=== PATIENT | male | born 1950 | race Caucasian/White ===

== ENCOUNTER → 2019-02-09 | Outpatient (CLI) | payer MEDICARE, BC, SELFPAY ==
--- NOTE | 2019-02-09 10:45 | MRI_ITS ---
STUDY: MRI LUMBAR SPINE WITHOUT CONTRAST REASON FOR EXAM: Male, 68 years old. Spinal stenosis, bilateral leg pain TECHNIQUE: Standardized fat and water weighted pulse sequences were obtained in the sagittal and axial planes. COMPARISON: None FINDINGS: T12-L1: Schmorl's nodes. Normal disc height, hydration and morphology. Normal bilateral facet joints. Normal central canal and bilateral lateral recesses. Normal bilateral intervertebral neural foramina. Normal lumbar lordosis. There is no substantial scoliosis. Normal conus medullaris that terminates at the T11-12 level. L1-2: Schmorl's nodes. Normal disc height, hydration and morphology. Normal bilateral facet joints. Normal central canal and bilateral lateral recesses. Normal bilateral intervertebral neural foramina. L2-3: Normal endplates. Normal disc height, hydration and morphology. Normal bilateral facet joints. Normal central canal and bilateral lateral recesses. Normal bilateral intervertebral neural foramina. L3-4: Normal endplates. There is mild annular disc bulge and disc desiccation. Mild bilateral facet arthrosis and ligamentum flavum hypertrophy.. Normal central canal and bilateral lateral recesses. Mild left foraminal narrowing. L4-5: Normal endplates. Moderate intervertebral disc space narrowing and moderate annular disc bulge. There is marked ligamentum flavum hypertrophy and moderate to marked bilateral facet arthrosis. Moderate to marked central canal narrowing and moderate bilateral foraminal narrowing. L5-S1: Normal endplates. Mild annular disc bulge. Mild bilateral facet arthrosis. Normal central canal and bilateral lateral recesses. Mild bilateral foraminal narrowing. Normal visualized sacral ala. Normal visualized paraspinous soft tissue structures. There is a small right renal cyst. MRI/Spine Lumbar (Routine) IMPRESSION: Multilevel degenerative disc disease is most prominent at L4-L5 as described above. Electronically Signed: Azam Messina, at 13:25 EDT Tel , Service support ,
== END | disposition home or self-care (01) ==
LOC: MRI 10:14
PROVIDERS: Family Provider Family Medicine; PCP Family Medicine
DX: M48.061 Spinal stenosis, lumbar region without neurogenic claudication (principal)
CPT/HCPCS: 72148

== ENCOUNTER 2019-05-16 03:36 | Inpatient (IN) | payer MEDICARE, BC, SELFPAY ==
[2015-09-25 12:44] VITALS: BMI 25.1
[2019-05-16] VITALS (43 sets, daily range): BP systolic 61–113; BP diastolic 34–70; PULSE 86–118; RESP 14–25; TEMP 36.4–38.8; O2SAT 89–99; BMI 25.7; BMI 25.9
--- NOTE | 2019-05-16 03:40 | EKG12_ITS ---
Test Reason : SOB Blood Pressure : / mmHG Vent. Rate : 095 BPM Atrial Rate : 095 BPM P-R Int : 160 ms QRS Dur : 094 ms QT Int : 366 ms P-R-T Axes : 050 047 048 degrees QTc Int : 459 ms Sinus rhythm with Premature atrial complexes Incomplete right bundle branch block Borderline ECG Confirmed by STEVE TREVINO ([id number]), telegraph editor GURPREET KILGORE ([id number]) on 05/22/2019 8:36:50 AM Referred By: JED Confirmed By:STEVE TREVINO
--- NOTE | 2019-05-16 04:15 | RAD_ITS ---
STUDY: X-RAY CHEST REASON FOR EXAM: Male, 68 years old. C/O UPPER BACK PAIN X 2 DAYS TECHNIQUE: Frontal and lateral views of the chest. COMPARISON: None. FINDINGS: The lungs are clear and expanded. There is no demonstrated pleural abnormality. Normal size heart. Normal mediastinum and pedrito. Normal visualized pulmonary arteries. Normal visualized aortic arch and descending thoracic aorta. There are diffuse degenerative changes of the visualized thoracic spine. There is mild dextro scoliosis of the thoracic spine. There is mild compression fracture of T12. Normal visualized ribs, clavicles, and shoulders. There is no demonstrated abnormality of the visualized soft tissue structures of the upper abdomen. RAD/Chest PA and Lateral IMPRESSION: Degenerative changes, as described above. No demonstrated acute cardiopulmonary process. There is mild compression fracture T12 probably an old fracture. Electronically Signed: Giorgio Ruano, at 4:44 EDT Tel , Service support ,
--- NOTE | 2019-05-16 05:20 | CT_ITS ---
STUDY: CT ABDOMEN AND PELVIS WITH CONTRAST REASON FOR EXAM: Male, 68 years old. BACK PAIN,RECURRENT JAUNDICE,ELEVATED BILLIRUBIN RADIATION DOSAGE (If Supplied By Facility): CTDIvol = ( 17.34 ) mGy, DLP = ( 1164.99 ) mGycm TECHNIQUE: Transaxial images were obtained from the dome of the diaphragm to the symphysis pubis without oral contrast. 100ML IV Isovue 300 was administered. Sagittal and coronal images were reconstructed. Individualized dose optimization techniques were used for this CT. COMPARISON: None. FINDINGS: Ill-defined airspace opacity is seen in the right lung lower lobe suggesting early pneumonia. The visualized portions of the heart are within normal limits. There is a moderate dilatation of the intrahepatic biliary tree. There is marked dilatation of the common bile duct which measures 18 mm. There is a noncalcified stone in the lower part of the common bile duct measures 2 cm. Normal spleen. Normal pancreas. Normal bilateral adrenal glands. Normal right kidney. Normal left kidney. Normal visualized stomach. Normal small intestine. There are multiple colonic diverticula consistent with diverticulosis. The appendix is visualized and appears normal. There is diffuse atherosclerotic calcification of the abdominal aorta, there is aneurysmal dilatation of the infrarenal abdominal aorta measures 3 cm in diameter. Normal inferior vena cava. Normal retroperitoneum. Normal urinary bladder. There is a left-sided inguinal hernia containing adipose tissue. There are diffuse degenerative changes of the visualized lumbar spine. CT/Abdomen/Pelvis WITH Contrast IMPRESSION: There is a moderate dilatation of the intrahepatic biliary tree. There is marked dilatation of the common bile duct which measures 18 mm. There is a noncalcified stone in the lower part of the common bile duct measures 2 cm. There is aneurysmal dilatation of the infrarenal abdominal aorta measures 3 cm in diameter. Ill-defined airspace opacity is seen in the right lung lower lobe suggesting early pneumonia. Electronically Signed: Giorgio Ruano, at 6:02 EDT Tel , Service support ,
[2019-05-16 07:01] LABS: ALB/GLOB Ratio 1.1 RATIO (0.9-2.4); AST(SGOT) 65 U/L (15-37); Alanine Aminotransfer ALT/SGPT 46 U/L (16-61); Alkaline Phosphatase 70 U/L (45-117); Anion Gap 9 (5-15); BUN 30 mg/dL (7-18); BUN/Creat Ratio 20.5 RATIO (10-20); Chloride 107 mmol/L (98-107); Creatinine, Serum 1.46 mg/dL (0.70-1.30); EST Glomerular Filtration Rate 51 mL/min (>60); Est Glom Filt Rate - Afr Amer 62 mL/min (>60); Globulin 3.5 g/dL (2.2-4.2); Glucose 162 mg/dL (74-106); Lipase 70 U/L (73-393); Potassium 4.5 mmol/L (3.5-5.1); Protein, Total 7.5 g/dL (6.4-8.2); Sodium Level 139 mmol/L (136-145)
[2019-05-16 07:03] LABS: Lactic Acid 3.4 mmol/L (0.4-2.0)
[2019-05-16 07:07] LABS: Absolute Lymphocyte Count 0.55 X10^3/uL (0.83-4.51); Absolute Neutrophil Count 11.8 X10^3/uL (2.0-7.7); Basophil# 0.02 X10^3/uL; Basophil% 0.2 % (0-1); Eosinophil# 0.01 X10^3/uL; Eosinophils% 0.1 % (0-5); Hematocrit 30.2 % (40-54); Hemoglobin 10.5 g/dL (13.0-16.5); Lymphocyte # 0.55 X10^3/ul (4.0); Lymphocyte % 4.3 % (19-41); Mean Corp Hgb Conc 34.8 g/dL (32-36); Mean Corpuscular Hgb 30.7 pg (27.0-32.0); Mean Corpuscular Volume 88.3 fL (80-94); Mean Platelet Vol. 10.2 fl (6.2-12.0); Monocyte# 0.36 X10^3/uL; Monocyte% 2.8 % (0-10); NRBC Flagged by Analyzer 0 % (0-5); Neutrophil # 11.79 X10^3/uL (2.7-7.7); Neutrophil % 92.1 % (47-70); POSITIVE DIFFERENTIAL YES; Platelet Count 262 K/mm3 (150-450); RBC Distribution Width CV 19.9 % (11.6-14.6); RBC Distribution Width SD 59.7 fl (35.1-43.9); Red Blood Count 3.42 M/mm3 (4.6-6.2); White Blood Count 12.8 K/mm3 (4.4-11.0)
[2019-05-16 07:09] LABS: Anisocytosis 2+; Differential Comment SCANNED; Differential Indicated SCAN CRITERIA MET; Microcytosis 1+
--- NOTE | 2019-05-16 08:15 | PCM.HP.STD ---
Problem List (1) Obstructive jaundice Status: Acute (2) Cholangitis Status: Acute History of Present Illness Date of Admission: 05/16/19 The patient is a 68 year old M who says that yesterday he began to have shortness of breath and scapula pain on the right side. He has a history of choledocholithiasis and had an ERCP with stone removal in 2015. The patient also began to have fevers and tachycardia in the emergency room after arrival. Past Medical History Past Medical History (Chronic Problems): Chronic Problems HTN (hypertension) (Chronic) GERD (gastroesophageal reflux disease) (Chronic) Allergies venom-honey bee [bee venom (honey bee)] Allergy (Verified 09/19/15 09:45) Anaphylaxis Home Medications: Ambulatory Orders Medication Instructions Recorded Lisinopril [Zestril] 20 mg PO DAILY 09/19/15 Meloxicam [Mobic] 15 mg PO DAILY 09/19/15 Acetaminophen [Tylenol Tablet] 650 mg PO Q6H PRN PRN #0 tablet 09/20/15 Omeprazole [Prilosec] 20 mg PO DAILY #60 capsule 09/20/15 Aspirin/Acetaminophen/Caffeine 1 each PO DAILY 09/25/15 [Excedrin Migraine Caplet] Epi Pen (for allergic rxn) [Epi 0.3 mg IM X1 09/25/15 Pen] Multivitamin [Daily Multiple 1 each PO DAILY 09/25/15 Vitamin] Surgical History: - - ERCP with stone removal in 2016 Psychiatric History: No pertinent psych hx Smoking Status: Former smoker - *Family History Paternal History Items: Heart Disease - Father history of Mi at age 69 Review of Systems Constitutional: Reports: Fever. Denies: Anorexia HEENT: Denies: Difficulty Swallowing Cardiovascular: Denies: Chest Pain Respiratory: Reports: Shortness of Breath. Denies: Cough Gastrointestinal: Reports: Abdominal Pain. Denies: Diarrhea, Dyspepsia, Hematemesis, Hematochezia, Nausea, Vomiting Genitourinary: Denies: Dysuria Musculoskeletal: Denies: Joint Tenderness Skin: Reports: Jaundice Neurological: Denies: Balance problems Psychiatric: Denies: Anxiety, Depression Hematologic/ Lymphatic: Denies: Anemia VTE Information - Inpt Only VTE Present on Admission: No VTE Mechan Device Prophylaxis: SCD's Patient Problems: Active and Suspected Problems Obstructive jaundice (Acute) Cholangitis (Acute) - Physical Exam General: Alert, Oriented x3, Cooperative Neck: No JVD Lungs: Normal air movement Cardiovascular: Tachycardic Abdomen: Soft, Non-Distended, Tender - Some tenderness to deep palpation in the right upper quadrant Extremities: No clubbing Skin: No rashes Musculoskeletal: No Muscle Wasting Neurological: Cranial nerves II-XII grossly intact Psych/Mental Status: Normal Affect Body Mass Index (BMI) 25.1 Laboratory Tests Past 24 Hrs 05/16/19 05/16/19 05/16/19 03:58 03:58 05:58 WBC 12.8 H RBC 3.42 L Hgb 10.5 L Hct 30.2 L MCV 88.3 MCH 30.7 MCHC 34.8 RDW Std Deviation 59.7 H RDW Coeff of Roly 19.9 H Plt Count 262 MPV 10.2 Immature Gran % (Auto) 0.500 Neut % (Auto) 92.1 H Lymph % (Auto) 4.3 L Teller % (Auto) 2.8 Eos % (Auto) 0.1 Baso % (Auto) 0.2 Absolute Neuts (auto) 11.8 H Absolute Lymphs (auto) 0.55 L Nucleated RBC % 0 Differential Comment SCANNED Anisocytosis 2+ Microcytosis 1+ Sodium 139 Potassium 4.5 Chloride 107 Carbon Dioxide 23.0 Anion Gap 9 BUN 30 H Creatinine 1.46 H Est GFR (MDRD) Af Amer 62 Est GFR (MDRD) Non-Af 51 L BUN/Creatinine Ratio 20.5 H Glucose 162 H Lactic Acid 3.4 H Calcium 9.0 Total Bilirubin 14.40 H AST 65 H ALT 46 Alkaline Phosphatase 70 Troponin I < 0.015 Total Protein 7.5 Albumin 4.0 Globulin 3.5 Albumin/Globulin Ratio 1.1 Lipase 70 L Clinical Impression(s) from Imaging Studies Chest X-Ray 05/16/19 04:15 IMPRESSION: Degenerative changes, as described above. No demonstrated acute cardiopulmonary process. There is mild compression fracture T12 probably an old fracture. Electronically Signed: Giorgio Ruano, at 4:44 EDT Tel , Service support , Assessment/Plan All Active Problems Obstructive jaundice (Acute) Cholangitis (Acute) Chest pain (Acute) 68-year-old male with obstructive jaundice. 1. The patient had CT scan which shows a probable common bile duct stone. Patient also has market distention of his gallbladder as well as biliary tree. The patient's bilirubin is elevated. The patient also began to have septic symptoms in the emergency room. His blood pressure has dropped to the mid 90s and he has become tachycardic in the 120s. The patient is also having a fever. The patient is jaundiced with fever and right upper quadrant pain consistent with cholangitis. He has been given Rocephin in the emergency room. He is also be given fluid boluses. 2. I recommend emergent ERCP for decompression of his biliary tree. I discussed ERCP with the patient and his . I discussed the risks including but not limited to bleeding, infection, perforation of the bile duct or bowel, pancreatitis. I also discussed placing a stent for decompression and drainage of the biliary tree due to the cholangitis. I also discussed the risks of anesthesia such as heart attack, stroke, requiring extended intubation in the ICU. I also discussed with the patient is in the early stages of sepsis and this may get worse before it gets better. The patient and his both agree that surgery is appropriate and will be the next option. If I am unable to decompress the biliary tree I will send in for percutaneous cholecystostomy tube later today. I was unable to transfer the patient to any tertiary care centers in the near area due to bed shortages. We do not have interventional radiology to place PTC drain. Wilfrid Cohen MD Pager: [facility] [address] [place] [address], [address] [place] [address] Office:
[2019-05-16] MEDS: Lactated Ringers 1,000 ML 100 ML IV (08:53)
--- NOTE | 2019-05-16 10:00 | CT_ITS ---
PROCEDURE: CT DIRECTED PERCUTANEOUS CHOLECYSTOSTOMY. DATE OF EXAMINATION: May 16, 2019. INDICATION: Male, 68 years old. Elevated bilirubin. Sepsis. PHYSICIAN: Hector Canales M.D. CONSENT: Written informed consent was obtained having explained the risks, benefits and alternatives in detail with the patient who accepted the risks and agreed to proceed. Laboratory review and clinical assessment was performed. CONSCIOUS SEDATION PROTOCOL: The Drugs used were: 2 mg Versed, IV., and 50 mcg Fentanyl, IV. The sedation time was: 19minutes. Conscious sedation was started at 10:26 AM and terminated at 10:45 AM. The conscious sedation protocol was independently monitored. RADIATION DOSAGE (If Supplied By Facility): CTDIvol = ( 21.5 ) mGy, DLP = ( 913.25 ) mGycm TECHNIQUE: CT sections were made through the abdomen and pelvis revealing dilated gallbladder and intrahepatic biliary ductal dilatation. Dilated common bile duct with a stone in its distal portion. The skin surface was prepped and draped in a sterile fashion. Puncture of the gallbladder was performed initially with a 10 Romanian catheter and fluid was aspirated. Drainage catheter was then inserted into the collection and formed into position. Additional fluid was aspirated for a total of approximately 110 cc of dark brown biliary fluid. The catheter was sutured into position to allow for continued drainage. Followup CT sections reveals good position of the catheter. CT/CT Guidance Abscess Drg w/Cath IMPRESSION: 1. CT directed drainage of a distended gallbladder using CT image guidance and image documentation as described. 2. Conscious Sedation protocol utilized with independent monitoring Electronically Signed: Hector Canales, at 12:57 EDT , Service support ,
--- NOTE | 2019-05-16 10:11 | PCM.PN.BLA ---
Progress Note Before ERCP could be performed the patients sepsis worsened. At this point the patient is too ustable for surgery. His BP is 74/54 and tachycardia of 120 despite several boluses. I will order a stat cholecystostomy tube for decompression. I discussed with the patient. This will hopefully decompress the biliary tree and allow for sepsis to resolve. The choledocholithiasis can then be addressed. I will arrange for ICU admission after cholecystostomy tube placement. I discussed with Dr Monge and meropenem will be ordered and repeat coag and lactate was ordered as well. Wilfrid Cohen MD
[2019-05-16 10:16] LABS: Reflex Lactate? Y
[2019-05-16] MEDS: Midazolam 2 MG/2 ML Syringe IV (10:25)
[2019-05-16] MEDS: 0.9% Normal Saline 500 ML IV.SOLN. (10:26)
[2019-05-16] MEDS: fentaNYL 100 MCG/2 ML Ampul 50 MCG IV ×6 (10:26→23:34)
--- NOTE | 2019-05-16 11:21 | NURSING ---
report called to [facility] prior to transport.
[2019-05-16] MEDS: 0.9% Normal Saline 1,000 ML 125 ML IV ×2 (11:25→19:27)
[2019-05-16 11:35] LABS: Absolute Lymphocyte Count 0.51 X10^3/uL (0.83-4.51); Absolute Neutrophil Count 8.9 X10^3/uL (2.0-7.7); Basophil# 0.01 X10^3/uL; Basophil% 0.1 % (0-1); Eosinophil# 0.16 X10^3/uL; Eosinophils% 1.6 % (0-5); Hematocrit 23.9 % (40-54); Hemoglobin 8.2 g/dL (13.0-16.5); Lymphocyte # 0.51 X10^3/ul (4.0); Mean Corp Hgb Conc 34.3 g/dL (32-36); Mean Corpuscular Hgb 30.6 pg (27.0-32.0); Mean Corpuscular Volume 89.2 fL (80-94); Mean Platelet Vol. 10.3 fl (6.2-12.0); Monocyte# 0.55 X10^3/uL; Monocyte% 5.4 % (0-10); NRBC Flagged by Analyzer 0 % (0-5); Neutrophil # 8.92 X10^3/uL (2.7-7.7); Neutrophil % 87.5 % (47-70); POSITIVE DIFFERENTIAL YES; POSITIVE MORPHOLOGY YES; Platelet Count 179 K/mm3 (150-450); RBC Distribution Width CV 19.9 % (11.6-14.6); RBC Distribution Width SD 60.8 fl (35.1-43.9); Red Blood Count 2.68 M/mm3 (4.6-6.2); White Blood Count 10.2 K/mm3 (4.4-11.0)
[2019-05-16] MEDS: Lactated Ringers 1,000 ML 999 ML IV ×2 (11:38→12:53)
[2019-05-16 11:39] LABS: Differential Indicated SCAN CRITERIA MET
[2019-05-16 11:47] LABS: International Normalized Ratio 1.2
[2019-05-16 11:48] LABS: Partial Thromboplast Time 29.2 Seconds (24.1-36.2)
[2019-05-16 11:55] LABS: ALB/GLOB Ratio 1.2 RATIO (0.9-2.4); AST(SGOT) 83 U/L (15-37); Alanine Aminotransfer ALT/SGPT 57 U/L (16-61); Alkaline Phosphatase 61 U/L (45-117); Anion Gap 8 (5-15); BUN 26 mg/dL (7-18); BUN/Creat Ratio 17.3 RATIO (10-20); Calcium,Total 7.9 mg/dL (8.5-10.1); Chloride 113 mmol/L (98-107); EST Glomerular Filtration Rate 50 mL/min (>60); Est Glom Filt Rate - Afr Amer 60 mL/min (>60); Estimated Creatinine Clearance 49.34 ml/min; Globulin 2.6 g/dL (2.2-4.2); Glucose 103 mg/dL (74-106); Protein, Total 5.6 g/dL (6.4-8.2); Sodium Level 143 mmol/L (136-145)
[2019-05-16 12:00] LABS: Lactic Acid 2.6 mmol/L (0.4-2.0)
[2019-05-16] MEDS: 0.9% NaCl Peripheral Flush Adult/Peds IV ×4 (12:08→20:13)
[2019-05-16] MEDS: 0.9% NaCl IVPB Med Flush (250 mL) 15 ML IV (12:18)
[2019-05-16] MEDS: fentaNYL 100 MCG/2 ML Ampul 25 MCG IV (13:30)
--- NOTE | 2019-05-16 13:40 | PCM.CON.CC ---
Problem List (1) Septic shock Status: Acute (2) Obstructive jaundice Status: Acute (3) Cholangitis Status: Acute (4) HTN (hypertension) Status: Chronic Qualifiers: Hypertension type: essential hypertension Qualified Code(s): I10 - Essential (primary) hypertension (5) Chest pain Status: Acute Qualifiers: Chest pain type: unspecified Qualified Code(s): R07.9 - Chest pain, unspecified (6) GERD (gastroesophageal reflux disease) Status: Chronic Qualifiers: Esophagitis presence: esophagitis presence not specified Qualified Code(s): K21.9 - Gastro-esophageal reflux disease without esophagitis Reason for Consult Date of Consultation: 05/16/19 Reason for Consultation: Septic shock History of Present Illness: The patient is a 68 year old M, with past medical history listed below, who presented [facility] on 05/16/2019 secondary to shortness of breath and scapular pain. Patient reported that he was of his usual health until approximately 2 days ago. At that time, patient started to notice a darkening of his urine. Approximately 24 hours prior to admission, patient had reported his stated that he was appearing yellow and had some abdominal pain. Patient did report some nausea and one episode of vomiting on the day of admission. Patient stated this was similar to a previous time where he had a stuck gallbladder stone. ER documentation is not available at this time, but patient reportedly did receive 2 L of IV fluids secondary to some hypotension. Patient was seen by surgery and there was some concern on CT scan of the abdomen for enlarged gallbladder. Patient was arranged for an ERCP, but during evaluation was noted to be hypotensive. Decision was made to transition to a percutaneous Jennifer tube and patient was transferred to the intensive care unit for further evaluation. Since being in the intensive care unit, patient has received an additional 2 L of lactated Ringer's secondary to hypotension. Patient's blood pressures have remained marginal. Patient denies any nausea, but states he had difficulty urinating. Patient reported that he attempted to bear down to urinate and developed excruciating right upper quadrant pain. Patient was treated with fentanyl with some improvement. Patient denies any current chest pain, abdominal pain, lower extremity edema or diaphoresis. Patient states he does not have a thermometer at home to check for fever. Patient has never been in the intensive care unit. Patient does report a 69-wvac-yolu smoking history, but quit 10 years ago. Patient denies any history of liver disease in his family and is not turned yellow previously. Patient denies any history of recurrent pancreatitis. Patient does not report any significant alcohol or drug history. Review of systems otherwise negative x10 systems. Past Medical History Past Medical History (Chronic Problems): Chronic Problems HTN (hypertension) (Chronic) GERD (gastroesophageal reflux disease) (Chronic) Allergies venom-honey bee [bee venom (honey bee)] Allergy (Verified 09/19/15 09:45) Anaphylaxis Home Medications: Ambulatory Orders Medication Instructions Recorded Lisinopril [Zestril] 40 mg PO DAILY 09/19/15 Meloxicam [Mobic] 15 mg PO DAILY 09/19/15 Epi Pen (for allergic rxn) [Epi 0.3 mg IM X1 09/25/15 Pen] Omeprazole [Prilosec] 20 mg PO DAILY 05/16/19 Surgical History: - - ERCP with stone removal in 2016 Psychiatric History: No pertinent psych hx Smoking Status: Former smoker - *Family History Paternal History Items: Heart Disease - Father history of Mi at age 69 Review of Systems Comment: See HPI Patient Problems: Active and Suspected Problems Obstructive jaundice (Acute) Cholangitis (Acute) Septic shock (Acute) Objective: Abdominal CT scan was personally reviewed. This did show an enlarged gallbladder. Chest x-ray was relatively unremarkable. Patient has had over 200 cc removed from his LENI drain since being admitted. Patient does not have any previous pulmonary function test or echocardiogram for review. - Physical Exam General: Alert, Oriented x3, Cooperative, - - Significant jaundice noted. Mild distress secondary to abdominal pain. HEENT: Atraumatic, PERRLA, EOMI, Normocephalic, - - Scleral icterus noted. Oral: Moist Mucosa, No Gingival or Mucosal Lesions/ Ulcerations Neck: Supple, No JVD, No Nodes, Trachea Midline Lungs: No rhonchi, No wheeze, No rales, Diminished Cardiovascular: Regular Rhythm, Normal S1, Normal S2, No murmurs, No rub noted, No Gallop, Tachycardic Abdomen: Soft, Hypoactive Bowel Sounds, Distended - Slightly Extremities: No clubbing, No cyanosis, Edema - Trace Skin: No rashes, No breakdown Musculoskeletal: No Tenderness to Palpation of Joints or Extremities Lymphatic: No Cervical, Supraclavicular, or Inguinal Adenopathy Neurological: Cranial nerves II-XII grossly intact, Neuro grossly intact, Motor Exam 5/5 strength throughout Psych/Mental Status: Alert and oriented to time, place, person, mood and affect Vital Signs Temp Pulse Resp BP Pulse Ox 38.1 C H 111 H 17 95/68 93 05/16/19 12:00 05/16/19 13:00 05/16/19 13:00 05/16/19 13:00 05/16/19 13:00 Oxygen Flow Rate (L/min) [6] 2 Oxygen Flow Rate (L/min) [5] 2 Oxygen Flow Rate (L/min) [4] 2 Oxygen Flow Rate (L/min) [3] 2 Oxygen Flow Rate (L/min) [2] 2 Oxygen Flow Rate (L/min) 2 Oxygen Delivery Method [6] Nasal Cannula Oxygen Delivery Method [5] Nasal Cannula Oxygen Delivery Method [4] Nasal Cannula Oxygen Delivery Method [3] Nasal Cannula Oxygen Delivery Method [2] Nasal Cannula Oxygen Delivery Method [1 ( Room Air Initial Baseline)] Oxygen Delivery Method Room Air Weight: 81.8 kg Body Mass Index (BMI) 25.9 Intake and Output for Last 24 Hours 05/14/19 05/15/19 05/16/19 23:59 23:59 23:59 Intake Total 1578.17 / 1578.17 Output Total 180 / 180 Balance 1398.17 / 1398.17 Microbiology Past 72 Hours 05/16/19 10:54 Gram Stain - Final [facility] Drainage Laboratory Tests Past 24 Hrs 05/16/19 05/16/19 05/16/19 03:58 03:58 05:58 WBC 12.8 H RBC 3.42 L Hgb 10.5 L Hct 30.2 L MCV 88.3 MCH 30.7 MCHC 34.8 RDW Std Deviation 59.7 H RDW Coeff of Roly 19.9 H Plt Count 262 MPV 10.2 Immature Gran % (Auto) 0.500 Neut % (Auto) 92.1 H Lymph % (Auto) 4.3 L Zavala % (Auto) 2.8 Eos % (Auto) 0.1 Baso % (Auto) 0.2 Absolute Neuts (auto) 11.8 H Absolute Lymphs (auto) 0.55 L Nucleated RBC % 0 Differential Comment SCANNED Anisocytosis 2+ Microcytosis 1+ PT INR APTT Sodium 139 Potassium 4.5 Chloride 107 Carbon Dioxide 23.0 Anion Gap 9 BUN 30 H Creatinine 1.46 H Estim Creat Clear Calc Est GFR (MDRD) Af Amer 62 Est GFR (MDRD) Non-Af 51 L BUN/Creatinine Ratio 20.5 H Glucose 162 H Lactic Acid 3.4 H Calcium 9.0 Total Bilirubin 14.40 H AST 65 H ALT 46 Alkaline Phosphatase 70 Troponin I < 0.015 Total Protein 7.5 Albumin 4.0 Globulin 3.5 Albumin/Globulin Ratio 1.1 Lipase 70 L 05/16/19 05/16/19 05/16/19 11:20 11:20 11:20 WBC 10.2 RBC 2.68 L Hgb 8.2 L Hct 23.9 L MCV 89.2 MCH 30.6 MCHC 34.3 RDW Std Deviation 60.8 H RDW Coeff of Roly 19.9 H Plt Count 179 MPV 10.3 Immature Gran % (Auto) 0.400 Neut % (Auto) 87.5 H Lymph % (Auto) 5.0 L Zavala % (Auto) 5.4 Eos % (Auto) 1.6 Baso % (Auto) 0.1 Absolute Neuts (auto) 8.9 H Absolute Lymphs (auto) 0.51 L Nucleated RBC % 0 Differential Comment Anisocytosis Microcytosis PT 15.0 H INR 1.2 APTT 29.2 Sodium Potassium Chloride Carbon Dioxide Anion Gap BUN Creatinine Estim Creat Clear Calc Est GFR (MDRD) Af Amer Est GFR (MDRD) Non-Af BUN/Creatinine Ratio Glucose Lactic Acid 2.6 H Calcium Total Bilirubin AST ALT Alkaline Phosphatase Troponin I Total Protein Albumin Globulin Albumin/Globulin Ratio Lipase 05/16/19 11:20 WBC RBC Hgb Hct MCV MCH MCHC RDW Std Deviation RDW Coeff of Roly Plt Count MPV Immature Gran % (Auto) Neut % (Auto) Lymph % (Auto) Zavala % (Auto) Eos % (Auto) Baso % (Auto) Absolute Neuts (auto) Absolute Lymphs (auto) Nucleated RBC % Differential Comment Anisocytosis Microcytosis PT INR APTT Sodium 143 Potassium 4.0 Chloride 113 H Carbon Dioxide 22.0 Anion Gap 8 BUN 26 H Creatinine 1.50 H Estim Creat Clear Calc 49.34 Est GFR (MDRD) Af Amer 60 Est GFR (MDRD) Non-Af 50 L BUN/Creatinine Ratio 17.3 Glucose 103 Lactic Acid Calcium 7.9 L Total Bilirubin 18.80 H* AST 83 H ALT 57 Alkaline Phosphatase 61 Troponin I Total Protein 5.6 L Albumin 3.0 L Globulin 2.6 Albumin/Globulin Ratio 1.2 Lipase Clinical Impression(s) from Imaging Studies Chest X-Ray 05/16/19 04:15 IMPRESSION: Degenerative changes, as described above. No demonstrated acute cardiopulmonary process. There is mild compression fracture T12 probably an old fracture. Electronically Signed: Giorgio Ruano, at 4:44 EDT Tel , Service support , Abdomen/Pelvis CT 05/16/19 05:20 IMPRESSION: There is a moderate dilatation of the intrahepatic biliary tree. There is marked dilatation of the common bile duct which measures 18 mm. There is a noncalcified stone in the lower part of the common bile duct measures 2 cm. There is aneurysmal dilatation of the infrarenal abdominal aorta measures 3 cm in diameter. Ill-defined airspace opacity is seen in the right lung lower lobe suggesting early pneumonia. Electronically Signed: Giorgio Ruano, at 6:02 EDT Tel , Service support , Abscess Drainage CT 05/16/19 10:00 IMPRESSION: 1. CT directed drainage of a distended gallbladder using CT image guidance and image documentation as described. 2. Conscious Sedation protocol utilized with independent monitoring Electronically Signed: Hector Canales, at 12:57 EDT , Service support , Assessment/Plan Active and Suspected Problems Obstructive jaundice (Acute) Cholangitis (Acute) Septic shock (Acute) RECOMMENDATIONS: 1. Central line placement with possible pressor initiation 2. Aggressive fluid resuscitation 3. Monitor abdominal exam 4. Monitor for signs and symptoms of DIC 5. Initiate bronchodilators if patient develops oxygen requirement IMPRESSIONS: 1. Probable gram-negative sepsis secondary to cholecystitis Patient has had a Jennifer tube in place and is significantly hypotensive at this time. Patient was initially treated with ceftriaxone, but this has been transitioned to meropenem, which I believe is more appropriate. Patient's abrupt hypotension is consistent with a gram-negative septic shock. Patient is receiving adequate fluid resuscitation at this time. Lactates are improving. These do not need to be continued. Central line placement for possible pressor therapy. Appreciate surgical monitoring. Defer cholecystectomy timing to surgery. 2. Possible acute kidney injury Likely prerenal etiology secondary to #1. Patient's only previous renal function studies available in the computer or when patient had presented with an obstructive jaundice in 2016. We will continue aggressive fluid resuscitation and blood pressure support. No indication for renal replacement therapy at this time. 3. Obstructive jaundice/history of smoking/hypertension Comp locates care, management, recovery and prognosis. Liver enzymes appear to be appropriate at this time. Patient does not have an elevated lipase to suggest gallstone pancreatitis. Continue to monitor closely for development of any DIC or other complications. Fentanyl as needed for pain control. Antihypertensives have been held secondary to acute condition. Patient does not have any wheezing on exam, so routine aerosols are likely not indicated. Patient appears to have an isolated hyperbilirubinemia. Unclear if patient would have a Gilbert's versus G6PD underlying pathophysiology leading to elevated bilirubins. No active intervention indicated. 4. CODE STATUS Verified with patient and his that he is a full code. TIME: 37 minutes critical care time spent addressing patient's septic shock, possible acute kidney injury, review of all data and collaboration with care team (11:30 AM to 2 PM) Code Visit 9xxxx: [id number] Critical care first hour
--- NOTE | 2019-05-16 14:00 | RAD_ITS ---
STUDY: X-RAY CHEST REASON FOR EXAM: Male, 68 years old. Right-sided triple-lumen catheter placement. TECHNIQUE: Single AP portable view of the chest. COMPARISON: Comparison is made with prior examination dated September 19, 2015. FINDINGS: A right-sided central catheter has been placed. The tip is in the midportion of the superior vena cava. Minimal increased markings at the lung bases suggestive of bibasilar atelectasis slightly worse on the left side. There is blunting of the left costophrenic angle. Normal size heart. Normal mediastinum and pedrito. Normal visualized pulmonary arteries. Normal visualized aortic arch and descending thoracic aorta. Normal visualized thoracic spine. Normal visualized ribs, clavicles, and shoulders. A biliary drainage catheter is visualized in the right upper quadrant. RAD/CXR for Line Placement IMPRESSION: The tip of the internal jugular venous catheter is in the midportion of the superior cava. Mild increased markings at the lung bases suggestive of bibasilar atelectasis with blunting of the left costophrenic. Electronically Signed: Hector Canales, at 14:49 EDT , Service support ,
--- NOTE | 2019-05-16 14:34 | PCM.OPRPT ---
Report of Operation Date of Procedure: 05/16/19 Surgery/Procedure Performed:: Triple-lumen catheter placement Description of Surgical Findings:: Central line placement procedure note Indication: IV access/hemodynamic instability/vasoactive medications Procedure: A time-out was completed to verify correct patient, indication, medication allergies, procedure, coagulation studies, informed consent signed, and equipment needed. The patient was placed in the supine position for a central line placement to the rt IJ vein. The patients rt neck was prepped using chlorhexidine and a full body sterile drape was applied. 1% lidocaine was used to anesthetize the surrounding skin. A 7fr 16 cm blue guard triple lumen catheter introduced into the internal jugular vein using the modified Seldinger technique with the assistance of ultrasound. The catheter was threaded smoothly over the guidewire, the guidewire was removed easily, nonpulsatile blood returned. All ports were aspirated of air and flushed with sterile saline. The catheter was sutured in place and covered with an occlusive dressing impregnated with chlorhexidine. Post-procedure: The patient tolerated the procedure well. Vital signs remained stable. EBL 5cc. No complications. Chest X Ray ordered to confirm tip placement and the absence of pneumothorax. Code Visit Procedures: 50038 Insert Non-tunnel CV Cath
--- NOTE | 2019-05-16 16:25 | CHAPLAIN ---
Type of Pastoral Visit _x__ Initial Visit ___ Follow-up Visit ___ On-call Visit ___ General Patient Visit ___ Spiritual Assessment ___ Family Conference ___ Bereavement ___ Rapid Response ___ Code Blue ___ Other (describe below) Pastoral Care Referral From _x__ Patient ___ Family ___ Nurse ___ Physician ___ Ic Design Engineer ___ Industrial Energy Engineer ___ Other (describe below) Sacrament/Intervention _x__ Active listening ___ Anointing ___ Buddhist ___ Bereavement ___ Communion ___ Lo exploration ___ ___ Life review _x__ Prayer ___ Reconciliation ___ Sacrament of Sick _x__ Supportive presence ___ Wedding ___ Other (describe below) Pastoral Comments patient invites clerk of scales to return for visits in future
[2019-05-17] VITALS (34 sets, daily range): BP systolic 85–144; BP diastolic 52–80; PULSE 82–107; RESP 14–21; TEMP 37.1–37.7; O2SAT 92–99
[2019-05-17] MEDS: fentaNYL 100 MCG/2 ML Ampul 50 MCG IV ×6 (02:24→22:38)
[2019-05-17] MEDS: 0.9% NaCl Peripheral Flush Adult/Peds IV ×4 (02:29→22:41)
[2019-05-17] MEDS: 0.9% Normal Saline 1,000 ML 125 ML IV ×2 (03:12→17:26)
[2019-05-17 04:28] LABS: Absolute Lymphocyte Count 0.65 X10^3/uL (0.83-4.51); Absolute Neutrophil Count 5.5 X10^3/uL (2.0-7.7); Basophil# 0.01 X10^3/uL; Basophil% 0.1 % (0-1); Eosinophil# 0.05 X10^3/uL; Eosinophils% 0.7 % (0-5); Hematocrit 24.2 % (40-54); Hemoglobin 8.1 g/dL (13.0-16.5); Lymphocyte # 0.65 X10^3/ul (4.0); Lymphocyte % 9.7 % (19-41); Mean Corp Hgb Conc 33.5 g/dL (32-36); Mean Corpuscular Hgb 31.2 pg (27.0-32.0); Mean Corpuscular Volume 93.1 fL (80-94); Mean Platelet Vol. 9.6 fl (6.2-12.0); Monocyte# 0.43 X10^3/uL; Monocyte% 6.4 % (0-10); NRBC Flagged by Analyzer 0 % (0-5); Neutrophil % 82.7 % (47-70); POSITIVE MORPHOLOGY YES; Platelet Count 127 K/mm3 (150-450); RBC Distribution Width CV 20.2 % (11.6-14.6); RBC Distribution Width SD 65.7 fl (35.1-43.9); White Blood Count 6.7 K/mm3 (4.4-11.0)
[2019-05-17 04:34] LABS: Differential Indicated SCAN CRITERIA MET
[2019-05-17 05:04] LABS: AST(SGOT) 74 U/L (15-37); Alanine Aminotransfer ALT/SGPT 74 U/L (16-61); Albumin, Serum 2.7 g/dL (3.2-5.0); Alkaline Phosphatase 58 U/L (45-117); Anion Gap 6 (5-15); BUN 18 mg/dL (7-18); Calcium,Total 7.6 mg/dL (8.5-10.1); Chloride 114 mmol/L (98-107); Creatinine, Serum 1.06 mg/dL (0.70-1.30); EST Glomerular Filtration Rate 74 mL/min (>60); Est Glom Filt Rate - Afr Amer 90 mL/min (>60); Estimated Creatinine Clearance 69.82 ml/min; Globulin 2.8 g/dL (2.2-4.2); Glucose 85 mg/dL (74-106); Magnesium 1.9 mg/dL (1.6-2.6); Phosphorus 1.4 mg/dL (2.5-4.9); Potassium 3.9 mmol/L (3.5-5.1); Protein, Total 5.5 g/dL (6.4-8.2); Sodium Level 144 mmol/L (136-145)
[2019-05-17 05:28] LABS: Differential Comment SCANNED; Macrocytosis 1+; Microcytosis 2+
[2019-05-17] MEDS: Enoxaparin 40 MG/0.4 ML Syringe SC (05:43)
--- NOTE | 2019-05-17 08:06 | PCM.PN.SRG ---
Patient Problems: Active and Suspected Problems Obstructive jaundice (Acute) Cholangitis (Acute) Septic shock (Acute) Subjective: Patient reports his pain is all centered around the drain entry site. No nausea or vomiting overnight. - Physical Exam General: Alert, Oriented x3 Neck: No JVD Lungs: Normal air movement Cardiovascular: Regular rate, Regular Rhythm Abdomen: Soft, Non-Distended Extremities: No clubbing Skin: No rashes Neurological: Cranial nerves II-XII grossly intact Psych/Mental Status: Normal Affect Vital Signs Temp Pulse Resp BP Pulse Ox 99.3 F H 101 H 16 104/71 97 05/17/19 07:58 05/17/19 07:58 05/17/19 07:58 05/17/19 07:58 05/17/19 07:58 Oxygen Flow Rate (L/min) [6] 2 Oxygen Flow Rate (L/min) [5] 2 Oxygen Flow Rate (L/min) [4] 2 Oxygen Flow Rate (L/min) [3] 2 Oxygen Flow Rate (L/min) [2] 2 Oxygen Flow Rate (L/min) 1 Oxygen Delivery Method [6] Nasal Cannula Oxygen Delivery Method [5] Nasal Cannula Oxygen Delivery Method [4] Nasal Cannula Oxygen Delivery Method [3] Nasal Cannula Oxygen Delivery Method [2] Nasal Cannula Oxygen Delivery Method [1 ( Room Air Initial Baseline)] Oxygen Delivery Method Nasal Cannula Weight: 182 lb 8.684 oz Body Mass Index (BMI) 25.9 Intake and Output for Last 24 Hours 05/15/19 05/16/19 05/17/19 23:59 23:59 23:59 Intake Total 4070.02 / 4075.03 912.68 / 912.68 Output Total 2004 1030 / 1030 Balance 2065.02 / 2070.03 -117.32 / -117.32 Microbiology Past 72 Hours 05/16/19 10:54 Gram Stain - Final [facility] Drainage Laboratory Tests Past 24 Hrs 05/16/19 05/16/19 05/16/19 11:20 11:20 11:20 WBC 10.2 RBC 2.68 L Hgb 8.2 L Hct 23.9 L MCV 89.2 MCH 30.6 MCHC 34.3 RDW Std Deviation 60.8 H RDW Coeff of Roly 19.9 H Plt Count 179 MPV 10.3 Immature Gran % (Auto) 0.400 Neut % (Auto) 87.5 H Lymph % (Auto) 5.0 L Power % (Auto) 5.4 Eos % (Auto) 1.6 Baso % (Auto) 0.1 Absolute Neuts (auto) 8.9 H Absolute Lymphs (auto) 0.51 L Nucleated RBC % 0 Differential Comment Microcytosis Macrocytosis PT 15.0 H INR 1.2 APTT 29.2 Sodium Potassium Chloride Carbon Dioxide Anion Gap BUN Creatinine Estim Creat Clear Calc Est GFR (MDRD) Af Amer Est GFR (MDRD) Non-Af BUN/Creatinine Ratio Glucose Lactic Acid 2.6 H Calcium Phosphorus Magnesium Total Bilirubin AST ALT Alkaline Phosphatase Total Protein Albumin Globulin Albumin/Globulin Ratio 05/16/19 05/17/19 05/17/19 11:20 04:20 04:20 WBC 6.7 RBC 2.60 L Hgb 8.1 L Hct 24.2 L MCV 93.1 MCH 31.2 MCHC 33.5 RDW Std Deviation 65.7 H RDW Coeff of Roly 20.2 H Plt Count 127 L MPV 9.6 Immature Gran % (Auto) 0.400 Neut % (Auto) 82.7 H Lymph % (Auto) 9.7 L Power % (Auto) 6.4 Eos % (Auto) 0.7 Baso % (Auto) 0.1 Absolute Neuts (auto) 5.5 Absolute Lymphs (auto) 0.65 L Nucleated RBC % 0 Differential Comment SCANNED Microcytosis 2+ Macrocytosis 1+ PT INR APTT Sodium 143 144 Potassium 4.0 3.9 Chloride 113 H 114 H Carbon Dioxide 22.0 24.0 Anion Gap 8 6 BUN 26 H 18 Creatinine 1.50 H 1.06 Estim Creat Clear Calc 49.34 69.82 Est GFR (MDRD) Af Amer 60 90 Est GFR (MDRD) Non-Af 50 L 74 BUN/Creatinine Ratio 17.3 17.0 Glucose 103 85 Lactic Acid Calcium 7.9 L 7.6 L Phosphorus 1.4 L Magnesium 1.9 Total Bilirubin 18.80 H* 16.50 H* AST 83 H 74 H ALT 57 74 H Alkaline Phosphatase 61 58 Total Protein 5.6 L 5.5 L Albumin 3.0 L 2.7 L Globulin 2.6 2.8 Albumin/Globulin Ratio 1.2 1.0 Clinical Impression(s) from Imaging Studies Abdomen/Pelvis CT 05/16/19 05:20 IMPRESSION: There is a moderate dilatation of the intrahepatic biliary tree. There is marked dilatation of the common bile duct which measures 18 mm. There is a noncalcified stone in the lower part of the common bile duct measures 2 cm. There is aneurysmal dilatation of the infrarenal abdominal aorta measures 3 cm in diameter. Ill-defined airspace opacity is seen in the right lung lower lobe suggesting early pneumonia. Electronically Signed: Giorgio Ruano, at 6:02 EDT Tel , Service support , Abscess Drainage CT 05/16/19 10:00 IMPRESSION: 1. CT directed drainage of a distended gallbladder using CT image guidance and image documentation as described. 2. Conscious Sedation protocol utilized with independent monitoring Electronically Signed: Hector Canales, at 12:57 EDT , Service support , Chest X-Ray 05/16/19 14:00 IMPRESSION: The tip of the internal jugular venous catheter is in the midportion of the superior cava. Mild increased markings at the lung bases suggestive of bibasilar atelectasis with blunting of the left costophrenic. Electronically Signed: Hector Canales, at 14:49 EDT , Service support , Medical Necessity - Tobacco Use Smoking Status: Former smoker Assessment/Plan All Active Problems Obstructive jaundice (Acute) Cholangitis (Acute) Septic shock (Acute) Chest pain (Acute) 68-year-old male with obstructive jaundice 1. The patient's bilirubin slightly decreased. The rest of his LFTs remain fairly normal. His LENI is draining dark green bile and it put out plenty of bile overnight. It is safe to say that this is decompressing the biliary tree. His sepsis seems to be improving. His white count is normal today and his left shift is improving. Continue antibiotics. Patient is not requiring pressor support and is on pressure is responding well. 2. I will allow him to have clear liquids today. As long as his vitals remained stable I will plan for ERCP tomorrow morning. Wilfrid Cohen MD Pager: [facility] [address] [place] [address], [address] [place] [address] Office:
--- NOTE | 2019-05-17 08:47 | PCM.PN.INT ---
Subjective: Patient did well overnight. Patient did require Levophed for approximately 4 hours secondary to hypotension. Blood pressure has improved. Patient is requiring 1 L nasal cannula with sleep, but otherwise is doing well from a respiratory standpoint. Patient continues to report pain at the drain site, especially with increased abdominal pressure and movement. Patient has been requiring fentanyl approximately every 3 hours. General: Alert, Oriented x3, Cooperative, - - Jaundice. Mild distress secondary to abdominal pain HEENT: Atraumatic, PERRLA, EOMI, Normocephalic, - - Scleral icterus noted. Oral: Moist Mucosa, No Gingival or Mucosal Lesions/ Ulcerations Neck: Supple, No JVD, No Nodes, Trachea Midline Lungs: Clear to auscultation, Normal air movement, No rhonchi, No wheeze, No rales Cardiovascular: Regular rate, Regular Rhythm, Normal S1, Normal S2, No murmurs, No rub noted, No Gallop Abdomen: Soft, Hypoactive Bowel Sounds, Tender - Right upper quadrant without rebound, but does have some guarding Extremities: No clubbing, No cyanosis, Edema - 1+ anasarca Skin: No rashes, No breakdown Musculoskeletal: No Tenderness to Palpation of Joints or Extremities Lymphatic: No Cervical, Supraclavicular, or Inguinal Adenopathy Neurological: Cranial nerves II-XII grossly intact, Neuro grossly intact, Motor Exam 5/5 strength throughout Psych/Mental Status: Alert and oriented to time, place, person, mood and affect Vital Signs Temp Pulse Resp BP Pulse Ox 37.4 C H 101 H 16 104/71 97 05/17/19 07:58 05/17/19 07:58 05/17/19 07:58 05/17/19 07:58 05/17/19 07:58 Oxygen Flow Rate (L/min) [6] 2 Oxygen Flow Rate (L/min) [5] 2 Oxygen Flow Rate (L/min) [4] 2 Oxygen Flow Rate (L/min) [3] 2 Oxygen Flow Rate (L/min) [2] 2 Oxygen Flow Rate (L/min) 1 Oxygen Delivery Method [6] Nasal Cannula Oxygen Delivery Method [5] Nasal Cannula Oxygen Delivery Method [4] Nasal Cannula Oxygen Delivery Method [3] Nasal Cannula Oxygen Delivery Method [2] Nasal Cannula Oxygen Delivery Method [1 ( Room Air Initial Baseline)] Oxygen Delivery Method Nasal Cannula Weight: 82.8 kg Body Mass Index (BMI) 25.9 Intake and Output for Last 24 Hours 05/15/19 05/16/19 05/17/19 23:59 23:59 23:59 Intake Total 4070.02 / 4075.03 912.68 / 912.68 Output Total 2004 1030 / 1030 Balance 2065.02 / 2070.03 -117.32 / -117.32 Labs (Last 48 Hours) 05/16/19 05/16/19 05/16/19 03:58 03:58 05:58 WBC 12.8 H RBC 3.42 L Hgb 10.5 L Hct 30.2 L MCV 88.3 MCH 30.7 MCHC 34.8 RDW Std Deviation 59.7 H RDW Coeff of Roly 19.9 H Plt Count 262 MPV 10.2 Immature Gran % (Auto) 0.500 Neut % (Auto) 92.1 H Lymph % (Auto) 4.3 L Carlton % (Auto) 2.8 Eos % (Auto) 0.1 Baso % (Auto) 0.2 Absolute Neuts (auto) 11.8 H Absolute Lymphs (auto) 0.55 L Nucleated RBC % 0 Differential Comment SCANNED Anisocytosis 2+ Microcytosis 1+ Macrocytosis PT INR APTT Sodium 139 Potassium 4.5 Chloride 107 Carbon Dioxide 23.0 Anion Gap 9 BUN 30 H Creatinine 1.46 H Estim Creat Clear Calc Est GFR (MDRD) Af Amer 62 Est GFR (MDRD) Non-Af 51 L BUN/Creatinine Ratio 20.5 H Glucose 162 H Lactic Acid 3.4 H Calcium 9.0 Phosphorus Magnesium Total Bilirubin 14.40 H AST 65 H ALT 46 Alkaline Phosphatase 70 Troponin I < 0.015 Total Protein 7.5 Albumin 4.0 Globulin 3.5 Albumin/Globulin Ratio 1.1 Lipase 70 L 05/16/19 05/16/19 05/16/19 11:20 11:20 11:20 WBC 10.2 RBC 2.68 L Hgb 8.2 L Hct 23.9 L MCV 89.2 MCH 30.6 MCHC 34.3 RDW Std Deviation 60.8 H RDW Coeff of Roly 19.9 H Plt Count 179 MPV 10.3 Immature Gran % (Auto) 0.400 Neut % (Auto) 87.5 H Lymph % (Auto) 5.0 L Carlton % (Auto) 5.4 Eos % (Auto) 1.6 Baso % (Auto) 0.1 Absolute Neuts (auto) 8.9 H Absolute Lymphs (auto) 0.51 L Nucleated RBC % 0 Differential Comment Anisocytosis Microcytosis Macrocytosis PT 15.0 H INR 1.2 APTT 29.2 Sodium Potassium Chloride Carbon Dioxide Anion Gap BUN Creatinine Estim Creat Clear Calc Est GFR (MDRD) Af Amer Est GFR (MDRD) Non-Af BUN/Creatinine Ratio Glucose Lactic Acid 2.6 H Calcium Phosphorus Magnesium Total Bilirubin AST ALT Alkaline Phosphatase Troponin I Total Protein Albumin Globulin Albumin/Globulin Ratio Lipase 05/16/19 05/17/19 05/17/19 11:20 04:20 04:20 WBC 6.7 RBC 2.60 L Hgb 8.1 L Hct 24.2 L MCV 93.1 MCH 31.2 MCHC 33.5 RDW Std Deviation 65.7 H RDW Coeff of Roly 20.2 H Plt Count 127 L MPV 9.6 Immature Gran % (Auto) 0.400 Neut % (Auto) 82.7 H Lymph % (Auto) 9.7 L Carlton % (Auto) 6.4 Eos % (Auto) 0.7 Baso % (Auto) 0.1 Absolute Neuts (auto) 5.5 Absolute Lymphs (auto) 0.65 L Nucleated RBC % 0 Differential Comment SCANNED Anisocytosis Microcytosis 2+ Macrocytosis 1+ PT INR APTT Sodium 143 144 Potassium 4.0 3.9 Chloride 113 H 114 H Carbon Dioxide 22.0 24.0 Anion Gap 8 6 BUN 26 H 18 Creatinine 1.50 H 1.06 Estim Creat Clear Calc 49.34 69.82 Est GFR (MDRD) Af Amer 60 90 Est GFR (MDRD) Non-Af 50 L 74 BUN/Creatinine Ratio 17.3 17.0 Glucose 103 85 Lactic Acid Calcium 7.9 L 7.6 L Phosphorus 1.4 L Magnesium 1.9 Total Bilirubin 18.80 H* 16.50 H* AST 83 H 74 H ALT 57 74 H Alkaline Phosphatase 61 58 Troponin I Total Protein 5.6 L 5.5 L Albumin 3.0 L 2.7 L Globulin 2.6 2.8 Albumin/Globulin Ratio 1.2 1.0 Lipase Microbiology 05/16/19 10:54 Fadi Dewitt Drainage Gram Stain - Final Clinical Impression(s) from Imaging Studies Abdomen/Pelvis CT 05/16/19 05:20 IMPRESSION: There is a moderate dilatation of the intrahepatic biliary tree. There is marked dilatation of the common bile duct which measures 18 mm. There is a noncalcified stone in the lower part of the common bile duct measures 2 cm. There is aneurysmal dilatation of the infrarenal abdominal aorta measures 3 cm in diameter. Ill-defined airspace opacity is seen in the right lung lower lobe suggesting early pneumonia. Electronically Signed: Giorgio Ruano, at 6:02 EDT Tel , Service support , Abscess Drainage CT 05/16/19 10:00 IMPRESSION: 1. CT directed drainage of a distended gallbladder using CT image guidance and image documentation as described. 2. Conscious Sedation protocol utilized with independent monitoring Electronically Signed: Hector Canales, at 12:57 EDT , Service support , Chest X-Ray 05/16/19 14:00 IMPRESSION: The tip of the internal jugular venous catheter is in the midportion of the superior cava. Mild increased markings at the lung bases suggestive of bibasilar atelectasis with blunting of the left costophrenic. Electronically Signed: Hector Canales, at 14:49 EDT , Service support , Medical Necessity - Tobacco Use Smoking Status: Former smoker Assessment/Plan All Active Problems Obstructive jaundice (Acute) Cholangitis (Acute) Septic shock (Acute) Chest pain (Acute) RECOMMENDATIONS: 1. Symptomatic therapy for fever 2. Reinitiation of p.o. diet per surgery 3. Wean oxygen as tolerated 4. Possible transfer from the intensive care unit later today IMPRESSIONS: 1. Probable gram-negative sepsis secondary to cholecystitis Patient has had a Jennifer tube in place and is significantly hypotensive at this time. Patient was initially treated with ceftriaxone, but this has been transitioned to meropenem, which I believe is more appropriate. Patient's abrupt hypotension is consistent with a gram-negative septic shock. Patient did have a central line placed and required pressor therapy for approximately 4 hours. Blood pressure is much improved at this time. Patient is requiring mild supplemental oxygen. 2. Possible acute kidney injury Likely prerenal etiology secondary to #1. Patient's only previous renal function studies available in the computer or when patient had presented with an obstructive jaundice in 2016. We will continue aggressive fluid resuscitation and blood pressure support. No indication for renal replacement therapy at this time. 3. Obstructive jaundice/history of smoking/hypertension Complicates care, management, recovery and prognosis. Liver enzymes appear to be appropriate at this time. Patient does not have an elevated lipase to suggest gallstone pancreatitis. Continue to monitor closely for development of any DIC or other complications. Fentanyl as needed for pain control. Antihypertensives have been held secondary to acute condition. Patient appears to have an isolated hyperbilirubinemia. Unclear if patient would have a Gilbert's versus G6PD underlying pathophysiology leading to elevated bilirubins. No active intervention indicated. 4. CODE STATUS Verified with patient and his that he is a full code. Code Visit Inpatient E&M: 40520 Subs Hosp L3
--- NOTE | 2019-05-17 09:43 | CASEMGMT ---
RN CM Assessment Presentation: Biliary Obstruction. 2mm stone in CBD, drainage and drain placed. Intro role of CM and purpose of RN CM assessment. Demographics, PCP and Pharmacy verified. PCP: Dr. Cirilo Carbajal. Pt requested information on changing PCP to local physican not affiliated with [facility]. List of area physicians given to pt. Discussed process of calling office to request new pt appointment, and paperwork will likely be needed to complete. Pt requested his Tuesday appt with Dr. Carbajal be cancelled. Call to office. Pt requested to reschedule. Specialists: Dr. Cohen Preferred [facility]acy: [facility] Insurance: [employer] Prescription Benefit: yes. Denies difficulty with paying for medications LNOK: , Meme Uribe Living Arrangements: Lives independently with . Exercises regularly, denies any care needs with ADL's. Transportation: Drives, or can drive DME: none used. HHC: none Patient DC goals: Home DC PLAN: Home Jone PALOMO RN AC
[2019-05-17] MEDS: 0.9% NaCl IVPB Med Flush (250 mL) 15 ML IV (14:01)
--- NOTE | 2019-05-17 15:12 | CHAPLAIN ---
Type of Pastoral Visit ___ Initial Visit _x__ Follow-up Visit ___ On-call Visit ___ General Patient Visit ___ Spiritual Assessment ___ Family Conference ___ Bereavement ___ Rapid Response ___ Code Blue ___ Other (describe below) Pastoral Care Referral From _x__ Patient ___ Family ___ Nurse ___ Physician ___ Deputy Manager ___ Skinning Machine Feeder ___ Other (describe below) Sacrament/Intervention _x__ Active listening ___ Anointing ___ Presybeterian ___ Bereavement ___ Communion ___ Lo exploration ___ ___ Life review _x__ Prayer ___ Reconciliation ___ Sacrament of Sick _x__ Supportive presence ___ Wedding ___ Other (describe below) Pastoral Comments patient asks this housekeeper cleaning cooking to make contact with his own graduate advisor to notify of pending surgery
[2019-05-18] VITALS (21 sets, daily range): BP systolic 98–149; BP diastolic 51–90; PULSE 82–106; RESP 14–20; TEMP 36.7–37.7; O2SAT 91–98; BMI 25.7; BMI 25.9
[2019-05-18] MEDS: 0.9% Normal Saline 1,000 ML 125 ML IV (00:43)
[2019-05-18] MEDS: fentaNYL 100 MCG/2 ML Ampul 50 MCG IV (02:17)
[2019-05-18] MEDS: 0.9% NaCl Peripheral Flush Adult/Peds IV (02:19)
[2019-05-18 05:14] LABS: Absolute Lymphocyte Count 0.65 X10^3/uL (0.83-4.51); Absolute Neutrophil Count 5.1 X10^3/uL (2.0-7.7); Basophil# 0.01 X10^3/uL; Basophil% 0.2 % (0-1); Eosinophil# 0.21 X10^3/uL; Eosinophils% 3.2 % (0-5); Hemoglobin 7.8 g/dL (13.0-16.5); Lymphocyte # 0.65 X10^3/ul (4.0); Mean Corp Hgb Conc 33.9 g/dL (32-36); Mean Corpuscular Hgb 31.7 pg (27.0-32.0); Mean Corpuscular Volume 93.5 fL (80-94); Mean Platelet Vol. 9.8 fl (6.2-12.0); Monocyte# 0.45 X10^3/uL; Monocyte% 6.9 % (0-10); NRBC Flagged by Analyzer 0.3 % (0-5); Neutrophil # 5.09 X10^3/uL (2.7-7.7); Neutrophil % 78.2 % (47-70); POSITIVE MORPHOLOGY YES; Platelet Count 144 K/mm3 (150-450); RBC Distribution Width CV 20.2 % (11.6-14.6); Red Blood Count 2.46 M/mm3 (4.6-6.2); White Blood Count 6.5 K/mm3 (4.4-11.0)
[2019-05-18 05:36] LABS: ALB/GLOB Ratio 0.8 RATIO (0.9-2.4); AST(SGOT) 47 U/L (15-37); Alanine Aminotransfer ALT/SGPT 66 U/L (16-61); Albumin, Serum 2.6 g/dL (3.2-5.0); Alkaline Phosphatase 58 U/L (45-117); Anion Gap 8 (5-15); BUN 14 mg/dL (7-18); BUN/Creat Ratio 17.6 RATIO (10-20); Calcium,Total 7.8 mg/dL (8.5-10.1); Chloride 109 mmol/L (98-107); EST Glomerular Filtration Rate 103 mL/min (>60); Est Glom Filt Rate - Afr Amer 124 mL/min (>60); Estimated Creatinine Clearance 92.52 ml/min; Globulin 3.2 g/dL (2.2-4.2); Glucose 95 mg/dL (74-106); Potassium 3.8 mmol/L (3.5-5.1); Protein, Total 5.8 g/dL (6.4-8.2); Sodium Level 141 mmol/L (136-145)
[2019-05-18 05:41] LABS: Differential Indicated SCAN CRITERIA MET
[2019-05-18 05:42] LABS: Anisocytosis 2+; Differential Comment SCANNED
--- NOTE | 2019-05-18 07:18 | PCM.PN.INT ---
Subjective: Patient did well overnight. Patient still reports some tenderness at the drain site, but otherwise feels subjectively improved compared to yesterday. Patient reportedly does have a planned ERCP today at 10:30 AM and reports that he did not sleep well because I tend to get nervous. Patient is not reporting any nausea or vomiting. Patient currently n.p.o. secondary to procedure. Patient tolerating room air overnight. General: Alert, Oriented x3, Cooperative, No apparent distress, Well developed, Well nourished, - - Jaundice is improving. HEENT: Atraumatic, PERRLA, EOMI, Normocephalic, - - Scleral icterus without injection noted Oral: Moist Mucosa, No Gingival or Mucosal Lesions/ Ulcerations Neck: Supple, No JVD, No Nodes, Trachea Midline Lungs: Clear to auscultation, Normal air movement, No rhonchi, No wheeze, No rales, - - Slight splinting on deep inhalation Cardiovascular: Regular rate, Regular Rhythm, Normal S1, Normal S2, No murmurs, No rub noted, No Gallop Abdomen: Bowel Sounds Present, Soft, Non-Distended, Tender - Palpation of the right upper quadrant. No rebound or guarding noted. Extremities: No clubbing, No cyanosis, No edema, Capillary Refill Less than 3 Seconds Skin: No rashes, No breakdown Musculoskeletal: No Tenderness to Palpation of Joints or Extremities Lymphatic: No Cervical, Supraclavicular, or Inguinal Adenopathy Neurological: Cranial nerves II-XII grossly intact, Neuro grossly intact, Motor Exam 5/5 strength throughout Psych/Mental Status: Alert and oriented to time, place, person, mood and affect Vital Signs Temp Pulse Resp BP Pulse Ox 37.6 C H 101 H 17 145/80 H 98 05/18/19 06:00 05/18/19 06:00 05/18/19 06:00 05/18/19 06:00 05/18/19 06:00 Oxygen Flow Rate (L/min) [6] 2 Oxygen Flow Rate (L/min) [5] 2 Oxygen Flow Rate (L/min) [4] 2 Oxygen Flow Rate (L/min) [3] 2 Oxygen Flow Rate (L/min) [2] 2 Oxygen Flow Rate (L/min) 1 Oxygen Delivery Method [6] Nasal Cannula Oxygen Delivery Method [5] Nasal Cannula Oxygen Delivery Method [4] Nasal Cannula Oxygen Delivery Method [3] Nasal Cannula Oxygen Delivery Method [2] Nasal Cannula Oxygen Delivery Method [1 ( Room Air Initial Baseline)] Oxygen Delivery Method Room Air Weight: 81.4 kg Body Mass Index (BMI) 25.9 Intake and Output for Last 24 Hours 05/16/19 05/17/19 05/18/19 23:59 23:59 23:59 Intake Total 4070.02 / 4075.03 3554.26 / 3554.26 945.67 / 945.67 Output Total 2004 3495 / 3495 1750 / 1750 Balance 2065.02 / 0.03 59.26 / 59.26 -804.33 / -804.33 Labs (Last 48 Hours) 05/16/19 05/16/19 05/16/19 11:20 11:20 11:20 WBC 10.2 RBC 2.68 L Hgb 8.2 L Hct 23.9 L MCV 89.2 MCH 30.6 MCHC 34.3 RDW Std Deviation 60.8 H RDW Coeff of Roly 19.9 H Plt Count 179 MPV 10.3 Immature Gran % (Auto) 0.400 Neut % (Auto) 87.5 H Lymph % (Auto) 5.0 L Dewey % (Auto) 5.4 Eos % (Auto) 1.6 Baso % (Auto) 0.1 Absolute Neuts (auto) 8.9 H Absolute Lymphs (auto) 0.51 L Nucleated RBC % 0 Differential Comment Anisocytosis Microcytosis Macrocytosis PT 15.0 H INR 1.2 APTT 29.2 Sodium Potassium Chloride Carbon Dioxide Anion Gap BUN Creatinine Estim Creat Clear Calc Est GFR (MDRD) Af Amer Est GFR (MDRD) Non-Af BUN/Creatinine Ratio Glucose Lactic Acid 2.6 H Calcium Phosphorus Magnesium Total Bilirubin AST ALT Alkaline Phosphatase Total Protein Albumin Globulin Albumin/Globulin Ratio 05/16/19 05/17/19 05/17/19 11:20 04:20 04:20 WBC 6.7 RBC 2.60 L Hgb 8.1 L Hct 24.2 L MCV 93.1 MCH 31.2 MCHC 33.5 RDW Std Deviation 65.7 H RDW Coeff of Roly 20.2 H Plt Count 127 L MPV 9.6 Immature Gran % (Auto) 0.400 Neut % (Auto) 82.7 H Lymph % (Auto) 9.7 L Dewey % (Auto) 6.4 Eos % (Auto) 0.7 Baso % (Auto) 0.1 Absolute Neuts (auto) 5.5 Absolute Lymphs (auto) 0.65 L Nucleated RBC % 0 Differential Comment SCANNED Anisocytosis Microcytosis 2+ Macrocytosis 1+ PT INR APTT Sodium 143 144 Potassium 4.0 3.9 Chloride 113 H 114 H Carbon Dioxide 22.0 24.0 Anion Gap 8 6 BUN 26 H 18 Creatinine 1.50 H 1.06 Estim Creat Clear Calc 49.34 69.82 Est GFR (MDRD) Af Amer 60 90 Est GFR (MDRD) Non-Af 50 L 74 BUN/Creatinine Ratio 17.3 17.0 Glucose 103 85 Lactic Acid Calcium 7.9 L 7.6 L Phosphorus 1.4 L Magnesium 1.9 Total Bilirubin 18.80 H* 16.50 H* AST 83 H 74 H ALT 57 74 H Alkaline Phosphatase 61 58 Total Protein 5.6 L 5.5 L Albumin 3.0 L 2.7 L Globulin 2.6 2.8 Albumin/Globulin Ratio 1.2 1.0 05/18/19 05/18/19 05:05 05:05 WBC 6.5 RBC 2.46 L Hgb 7.8 L Hct 23.0 L MCV 93.5 MCH 31.7 MCHC 33.9 RDW Std Deviation 66.0 H RDW Coeff of Roly 20.2 H Plt Count 144 L MPV 9.8 Immature Gran % (Auto) 1.500 H Neut % (Auto) 78.2 H Lymph % (Auto) 10.0 L Dewey % (Auto) 6.9 Eos % (Auto) 3.2 Baso % (Auto) 0.2 Absolute Neuts (auto) 5.1 Absolute Lymphs (auto) 0.65 L Nucleated RBC % 0.3 Differential Comment SCANNED Anisocytosis 2+ Microcytosis Macrocytosis PT INR APTT Sodium 141 Potassium 3.8 Chloride 109 H Carbon Dioxide 24.0 Anion Gap 8 BUN 14 Creatinine 0.80 Estim Creat Clear Calc 92.52 Est GFR (MDRD) Af Amer 124 Est GFR (MDRD) Non-Af 103 BUN/Creatinine Ratio 17.6 Glucose 95 Lactic Acid Calcium 7.8 L Phosphorus Magnesium Total Bilirubin 12.50 H AST 47 H ALT 66 H Alkaline Phosphatase 58 Total Protein 5.8 L Albumin 2.6 L Globulin 3.2 Albumin/Globulin Ratio 0.8 L Microbiology 05/16/19 10:54 Fadi Dewitt Drainage Gram Stain - Final 05/16/19 10:54 Fadi Dewitt Drainage Body Fluid Culture - Preliminary GNR lactose nursing staffing coordinator Medical Necessity - Tobacco Use Smoking Status: Former smoker Assessment/Plan All Active Problems Obstructive jaundice (Acute) Cholangitis (Acute) Septic shock (Acute) Chest pain (Acute) RECOMMENDATIONS: 1. Symptomatic therapy for fever 2. Reinitiation of p.o. diet per surgery 3. Wean oxygen as tolerated 4. Possible transfer from the intensive care unit later today if tolerates ERCP 5. Continue empiric antibiotics until cultures finalize IMPRESSIONS: 1. Probable gram-negative sepsis secondary to cholecystitis Resolved. Patient has had a Jennifer tube in place and is significantly hypotensive at this time. Patient was initially treated with ceftriaxone, but this has been transitioned to meropenem, which I believe is more appropriate. Patient does have gram negatives growing out of LENI drain. Patient was transiently on pressors, but appears to be doing well at this time. Await results of ERCP. If tolerates well, likely okay to go to [facility] 2. Possible acute kidney injury Renal function continues to normalize indicating acute kidney injury on presentation. This was likely secondary to problem #1. Electrolytes are appropriate at this time. 3. Obstructive jaundice/history of smoking/hypertension Complicates care, management, recovery and prognosis. Liver enzymes appear to be appropriate at this time. Patient does not have an elevated lipase to suggest gallstone pancreatitis. Fentanyl as needed for pain control. Likely okay to reinitiate antihypertensives if tolerates ERCP. Patient continues to have an isolated hyperbilirubinemia, but this is slowly improving. Unclear if patient would have a Gilbert's versus G6PD underlying pathophysiology leading to elevated bilirubins. No active intervention indicated. 4. CODE STATUS Verified with patient and his that he is a full code. Code Visit Inpatient E&M: 04913 Subs Hosp L2
--- NOTE | 2019-05-18 10:02 | RAD_ITS ---
STUDY: ERCP. REASON FOR EXAM: Male, 68 years old. Choledocholithiasis. Sepsis. FLUOROSCOPY TIME (if supplied): (4:23) minutes/seconds TECHNIQUE: An ERCP was performed by the surgeon. Cine imaging was obtained. COMPARISON: None. FINDINGS: A cholecystostomy tube is seen within the gallbladder and the cystic duct. There is dilatation of the common bile duct with several large stones in the mid and distal portion of the duct. A biliary stent was then placed. There is emptying of the duct. RAD/ERCP Biliary/Pancreas IMPRESSION: Dilated common bile duct with multiple stones in the mid and distal portion with subsequent placement of a biliary stent. There is adequate drainage. Electronically Signed: Hector Canales, at 12:41 EDT , Service support ,
--- NOTE | 2019-05-18 11:12 | OP.ENDO_ITS ---
05/18/2019 Cirilo Carbajal Re : ERCP procedure for Ramon Uribe Dear [place] This procedure was performed on Saturday, May 18, 2019. My impressions and recommendations are as follows: Impressions : - Normal upper GI tract. - The major papilla appeared normal. - A filling defect consistent with a stone was seen on the cholangiogram. - Choledocholithiasis was found. Complete removal was accomplished by biliary sphincterotomy and balloon extraction. - A biliary sphincterotomy was performed. - The biliary tree was swept. - The biliary tree was swept. - One plastic stent was placed into the common bile duct. Recommendations : - [facility]. - Resume previous diet. My findings are described in the full procedure note, which is enclosed. If I can be of further assistance, please feel free to contact me at Doctor phone number(s): , Work: . Sincerely, Wilfrid Cohen MD 05/18/2019 11:12:17 AM This report has been signed electronically.
--- NOTE | 2019-05-18 11:16 | PCM.DC ---
- Discharge Diagnoses Current Active Problems: Current Active and Chronic Problems Obstructive jaundice (Acute) Cholangitis (Acute) Septic shock (Acute) You will use the following diet at home:: Regular Your food should be the consistency of: Regular Your liquids should be the consistency of: Regular/Thin Discharge Activity: Return to Normal Activity, No Restrictions Call your doctor if your incision/area has: Continuous Slow Oozing, Sudden Increased Bleeding, Increased Pain/ Swelling, Increased Redness, Foul Smelling Discharge, Swelling at the incision site Call your doctor if you observe: Fever of 101 or Higher Cleanse incision/area with: Soap & Water, - - Do not get drain dressing wet. If any issues with drain dressing contact interventional radiology department at hospital for replacement. Drain: Suction Additional Dressing/Incision Instructions:: Empty bulb suction as needed. Allergies/Adverse Reactions: Allergies venom-honey bee [bee venom (honey bee)] Allergy (Verified 09/19/15 09:45) Anaphylaxis Medications to take at Discharge Lisinopril [Zestril] 40 mg PO DAILY 09/19/15 Meloxicam [Mobic] 15 mg PO DAILY 09/19/15 Epi Pen (for allergic rxn) [Epi Pen] 0.3 mg IM X1 09/25/15 Omeprazole [Prilosec] 20 mg PO DAILY 05/16/19 Amoxicillin/Potassium Clav [Augmentin 875-125 Tablet] 1 ea PO BID 10 Days #20 tab 05/18/19 The following prescriptions were given: Amoxicillin/Potassium Clav [Augmentin 875-125 Tablet] 1 ea PO BID 10 Days #20 tab Transmission Status: Sent to [facility] Primary Care Physician: Cirilo Carbajal MD [Primary Care Provider] - Test Results: Test results from this visit will be discussed in further detail at your follow-up appointment, if applicable. Please Follow Up With: Wilfrid Cohen MD When: Please call to schedule 2 week follow up appointment. [phone]
[2019-05-18] MEDS: 0.9% Normal Saline 1,000 ML 15 ML IV (11:38)
--- NOTE | 2019-05-18 15:57 | CHAPLAIN ---
Type of Pastoral Visit ___ Initial Visit _x__ Follow-up Visit ___ On-call Visit ___ General Patient Visit ___ Spiritual Assessment ___ Family Conference ___ Bereavement ___ Rapid Response ___ Code Blue ___ Other (describe below) Pastoral Care Referral From _x__ Patient ___ Family ___ Nurse ___ Physician ___ Water [employer]er Systems Superintendent ___ Patient Portal Concierge ___ Other (describe below) Sacrament/Intervention _x__ Active listening ___ Anointing ___ Zoroastrianism ___ Bereavement ___ Communion ___ Lo exploration ___ ___ Life review ___ Prayer ___ Reconciliation ___ Sacrament of Sick ___ Supportive presence ___ Wedding ___ Other (describe below) Pastoral Comments message given to patient that 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
[2019-05-19 02:52] VITALS: BP 157/80; PULSE 90; RESP 18; TEMP 36.9; O2SAT 96
[2019-05-19] MEDS: oxyCODONE 5 MG Tablet PO ×2 (02:58→05:17)
--- NOTE | 2019-05-19 03:37 | NURSING ---
05/19/2019 0000 Pt. accidentally pulled out LENI drain. Dressing D&I and notified DR. Ledbetter. No new orders received and will continue to monitor.
[2019-05-19] MEDS: Enoxaparin 40 MG/0.4 ML Syringe SC (05:11)
[2019-05-19 07:08] VITALS: O2SAT 95
--- NOTE | 2019-05-19 08:22 | PCM.PN.INT ---
Subjective: Patient transferred out of the intensive care unit yesterday. Patient did undergo a successful removal of debris from the biliary duct. Overnight, patient reports that he had inadvertently removed his Jennifer drain. Patient denies any significant change in abdominal pain. No nausea or vomiting is been reported. Patient has remained hemodynamically stable on room air. General: Alert, Oriented x3, Cooperative, No apparent distress, Well developed, Well nourished, - - Jaundice appears to be improving HEENT: Atraumatic, PERRLA, EOMI, Normocephalic, - - No scleral icterus or injection noted Oral: Moist Mucosa, No Gingival or Mucosal Lesions/ Ulcerations Neck: Supple, No JVD, No Nodes, Trachea Midline Lungs: Clear to auscultation, Normal air movement, No rhonchi, No wheeze, No rales Cardiovascular: Regular rate, Regular Rhythm, Normal S1, Normal S2, No murmurs, No rub noted, No Gallop Abdomen: Bowel Sounds Present, Soft, Non Tender, Non-Distended Extremities: No clubbing, No cyanosis, Edema - Trace Skin: No rashes, No breakdown, - - Right upper quadrant site is clean, dry and intact Musculoskeletal: No Tenderness to Palpation of Joints or Extremities Lymphatic: No Cervical, Supraclavicular, or Inguinal Adenopathy Neurological: Cranial nerves II-XII grossly intact, Neuro grossly intact, Motor Exam 5/5 strength throughout Psych/Mental Status: Alert and oriented to time, place, person, mood and affect Vital Signs Temp Pulse Resp BP Pulse Ox 36.9 C 90 18 157/80 H 95 05/19/19 02:52 05/19/19 02:52 05/19/19 02:52 05/19/19 02:52 05/19/19 07:08 Oxygen Flow Rate (L/min) [6] 2 Oxygen Flow Rate (L/min) [5] 2 Oxygen Flow Rate (L/min) [4] 2 Oxygen Flow Rate (L/min) [3] 2 Oxygen Flow Rate (L/min) [2] 2 Oxygen Flow Rate (L/min) 2 Oxygen Delivery Method [6] Nasal Cannula Oxygen Delivery Method [5] Nasal Cannula Oxygen Delivery Method [4] Nasal Cannula Oxygen Delivery Method [3] Nasal Cannula Oxygen Delivery Method [2] Nasal Cannula Oxygen Delivery Method [1 ( Room Air Initial Baseline)] Oxygen Delivery Method Room Air Weight: 78.8 kg Body Mass Index (BMI) 25.7 Intake and Output for Last 24 Hours 05/17/19 05/18/19 05/19/19 23:59 23:59 23:59 Intake Total 3554.26 / 3554.26 3401.67 / 3401.67 182.75 / 182.75 Output Total 3495 / 3495 3665 / 3665 Balance 59.26 / 59.26 -263.33 / -263.33 182.75 / 182.75 Labs (Last 48 Hours) 05/18/19 05/18/19 05:05 05:05 WBC 6.5 RBC 2.46 L Hgb 7.8 L Hct 23.0 L MCV 93.5 MCH 31.7 MCHC 33.9 RDW Std Deviation 66.0 H RDW Coeff of Roly 20.2 H Plt Count 144 L MPV 9.8 Immature Gran % (Auto) 1.500 H Neut % (Auto) 78.2 H Lymph % (Auto) 10.0 L [place] % (Auto) 6.9 Eos % (Auto) 3.2 Baso % (Auto) 0.2 Absolute Neuts (auto) 5.1 Absolute Lymphs (auto) 0.65 L Nucleated RBC % 0.3 Differential Comment SCANNED Anisocytosis 2+ Sodium 141 Potassium 3.8 Chloride 109 H Carbon Dioxide 24.0 Anion Gap 8 BUN 14 Creatinine 0.80 Estim Creat Clear Calc 92.52 Est GFR (MDRD) Af Amer 124 Est GFR (MDRD) Non-Af 103 BUN/Creatinine Ratio 17.6 Glucose 95 Calcium 7.8 L Total Bilirubin 12.50 H AST 47 H ALT 66 H Alkaline Phosphatase 58 Total Protein 5.8 L Albumin 2.6 L Globulin 3.2 Albumin/Globulin Ratio 0.8 L Microbiology 05/16/19 10:54 Fadi Dewitt Drainage Gram Stain - Final 05/16/19 10:54 Fadi Dewitt Drainage Body Fluid Culture - Final Escherichia coli Klebsiella oxytoca Enterococcus gallinarum 05/16/19 10:54 Fadi Dewitt Drainage Anaerobic Culture - Preliminary Checking for anaerobes, further studies to follow. 05/16/19 06:05 Blood Culture (Wb) - Left Hand Blood Culture - Preliminary No growth in 48 hours. 05/16/19 05:50 Blood Culture (Wb) - Anticubital Right Blood Culture - Preliminary No growth in 48 hours. Clinical Impression(s) from Imaging Studies Endo Retro Cholangiopancreatogram 05/18/19 10:02 IMPRESSION: Dilated common bile duct with multiple stones in the mid and distal portion with subsequent placement of a biliary stent. There is adequate drainage. Electronically Signed: Hector Canales, at 12:41 EDT , Service support , Medical Necessity - Tobacco Use Smoking Status: Former smoker Assessment/Plan All Active Problems Obstructive jaundice (Acute) Cholangitis (Acute) Septic shock (Acute) Chest pain (Acute) RECOMMENDATIONS: 1. Symptomatic therapy for fever 2. Reinitiation of p.o. diet per surgery 3. Defer to surgery on care for previous Jennifer drain site 4. Hemodynamically stable on room air. Will sign off from a critical care perspective 5. Okay to reinitiate baseline antihypertensives IMPRESSIONS: 1. Gram-negative septic shock secondary to obstructive cholecystitis Resolved. Patient has had a Jennifer tube in place and is significantly hypertensive at this time. Patient was able to have removal of obstructing stone yesterday by ERCP. Patient did inadvertently removed Jennifer tube. Would defer to surgery. Patient has responded well to current antibiotic selection. Await culture data for p.o. options on discharge. Patient has remained hemodynamically stable on room air. Will sign off from a critical care perspective. 2. Possible acute kidney injury Renal function continues to normalize indicating acute kidney injury on presentation. This was likely secondary to problem #1. Electrolytes are appropriate at this time. 3. Obstructive jaundice/history of smoking/hypertension Complicates care, management, recovery and prognosis. Liver enzymes appear to be appropriate at this time. Patient does not have an elevated lipase to suggest gallstone pancreatitis. Fentanyl as needed for pain control. Will reinitiate antihypertensive. Patient continues to have an isolated hyperbilirubinemia, but this is slowly improving. Unclear if patient would have a Gilbert's versus G6PD underlying pathophysiology leading to elevated bilirubins. No active intervention indicated. 4. CODE STATUS Verified with patient and his that he is a full code. Code Visit Inpatient E&M: 38108 Subs Hosp L2
[2019-05-19 08:24] VITALS: BP 149/93; PULSE 85; RESP 16; TEMP 36.6; O2SAT 96
[2019-05-19] MEDS: Lisinopril 40 MG Tablet PO (08:49)
--- NOTE | 2019-05-19 09:40 | PCM.PN.SRG ---
Patient Problems: Active and Suspected Problems Obstructive jaundice (Acute) Cholangitis (Acute) Septic shock (Acute) Subjective: Patient pulled out Jennifer tube last night. Not complaining of any abdominal pain. Tolerating diet so far. Objective: Abdomen is soft nontender nondistended - Physical Exam Vital Signs Temp Pulse Resp BP Pulse Ox 97.9 F 85 16 149/93 H 96 05/19/19 08:24 05/19/19 08:24 05/19/19 08:24 05/19/19 08:24 05/19/19 08:24 Oxygen Flow Rate (L/min) [6] 2 Oxygen Flow Rate (L/min) [5] 2 Oxygen Flow Rate (L/min) [4] 2 Oxygen Flow Rate (L/min) [3] 2 Oxygen Flow Rate (L/min) [2] 2 Oxygen Flow Rate (L/min) 2 Oxygen Delivery Method [6] Nasal Cannula Oxygen Delivery Method [5] Nasal Cannula Oxygen Delivery Method [4] Nasal Cannula Oxygen Delivery Method [3] Nasal Cannula Oxygen Delivery Method [2] Nasal Cannula Oxygen Delivery Method [1 ( Room Air Initial Baseline)] Oxygen Delivery Method Room Air Weight: 173 lb 11.588 oz Body Mass Index (BMI) 25.7 Intake and Output for Last 24 Hours 05/17/19 05/18/19 05/19/19 23:59 23:59 23:59 Intake Total 3554.26 / 3554.26 3401.67 / 3401.67 182.75 / 182.75 Output Total 3495 / 3495 3665 / 3665 Balance 59.26 / 59.26 -263.33 / -263.33 182.75 / 182.75 Microbiology Past 72 Hours 05/16/19 10:54 Gram Stain - Final Fadi Dewitt Drainage Body Fluid Culture - Final Escherichia coli Klebsiella oxytoca Enterococcus gallinarum Anaerobic Culture - Preliminary Checking for anaerobes, further studies to follow. 05/16/19 06:05 Blood Culture - Preliminary Blood Culture (Wb) - Left Hand No growth in 48 hours. 05/16/19 05:50 Blood Culture - Preliminary Blood Culture (Wb) - Anticubital Right No growth in 48 hours. Medical Necessity - Tobacco Use Smoking Status: Former smoker Assessment/Plan All Active Problems Obstructive jaundice (Acute) Cholangitis (Acute) Septic shock (Acute) Chest pain (Acute) We will advance diet if he tolerates this it is okay for him to be discharged today
--- NOTE | 2019-05-19 11:30 | PCM.DC.GS ---
Discharge Diet: Light diet - advance as tolerated - If you have questions about your diet instructions, please talk to your doctor. Discharge Activity: Return to Normal Activity, No Restrictions May shower in (days): 1 Lifting Restrictions: 10 pounds Call your doctor if your incision/area has: Continuous Slow Oozing, Sudden Increased Bleeding, Increased Pain/ Swelling, Increased Redness, Foul Smelling Discharge, Swelling at the incision site Call your doctor if you observe: Fever of 101 or Higher Suture Line Care: Avoid Pulling/Pushing, Avoid Pinching/Bending Cleanse incision/area with: Soap & Water, - - Do not get drain dressing wet. If any issues with drain dressing contact interventional radiology department at hospital for replacement. Drain: Suction Additional Dressing/Incision Instructions:: Empty bulb suction as needed. Allergies/Adverse Reactions: Allergies venom-honey bee [bee venom (honey bee)] Allergy (Verified 09/19/15 09:45) Anaphylaxis Medications to take at Discharge Lisinopril [Zestril] 40 mg PO DAILY 09/19/15 Meloxicam [Mobic] 15 mg PO DAILY 09/19/15 Epi Pen (for allergic rxn) [Epi Pen] 0.3 mg IM X1 09/25/15 Omeprazole [Prilosec] 20 mg PO DAILY 05/16/19 Amoxicillin/Potassium Clav [Augmentin 875-125 Tablet] 1 ea PO BID 10 Days #20 tab 05/18/19 The following prescriptions were given: Amoxicillin/Potassium Clav [Augmentin 875-125 Tablet] 1 ea PO BID 10 Days #20 tab Transmission Status: Received by [facility] Primary Care Physician: Cirilo Carbajal MD [Primary Care Provider] - Test Results: Test results from this visit will be discussed in further detail at your follow-up appointment, if applicable. Please Follow Up With: Wilfrid Cohen MD When: Please call to schedule 2 week follow up appointment. [phone]
--- NOTE | 2019-05-24 15:46 | DS.PCM_ITS ---
Discharge Date and Diagnosis Date of Admission: 05/16/19 Date of Discharge: 05/19/19 - Primary Discharge Diagnosis choledocholithiasis Sepsis - Secondary Discharge Diagnosis Chronic Problems HTN (hypertension) (Chronic) GERD (gastroesophageal reflux disease) (Chronic) Hospital Course and Treatment Operations: ERCP Procedures: - - Cholecystostomy tube Summary of Care Provided: The patient is a 68 year old M who presented to the ED with scapula pain and shortness of breath. CT scan demonstrated: There is a moderate dilatation of the intrahepatic biliary tree. There is marked dilatation of the common bile duct which measures 18 mm. There is a noncalcified stone in the lower part of the common bile duct measures 2 cm. There is aneurysmal dilatation of the infrarenal abdominal aorta measures 3 cm in diameter. Ill-defined airspace opacity is seen in the right lung lower lobe suggesting early pneumonia. Dr. Cohen was scheduled to take the patient for an ERCP. Patient 's sepsis worsened. It was recommended patient have a cholecystostomy tube placed on 05/16/19. Patient was stabilized. Dr. Cohen took the patient for an ERCP with stent placement on 05/18/19. Patient continued to improve. Patient accidentally pulled his keri tube out. Upon discharge, patient tolerated a diet. He denies abdominal pain, nausea, vomiting. Jaundice had improved. - Physical Exam Vital Signs Temp Pulse Resp BP Pulse Ox 97.9 F 85 16 149/93 H 96 05/19/19 08:24 05/19/19 08:24 05/19/19 08:24 05/19/19 08:24 05/19/19 08:24 Oxygen Flow Rate (L/min) [6] 2 Oxygen Flow Rate (L/min) [5] 2 Oxygen Flow Rate (L/min) [4] 2 Oxygen Flow Rate (L/min) [3] 2 Oxygen Flow Rate (L/min) [2] 2 Oxygen Flow Rate (L/min) 2 Oxygen Delivery Method [6] Nasal Cannula Oxygen Delivery Method [5] Nasal Cannula Oxygen Delivery Method [4] Nasal Cannula Oxygen Delivery Method [3] Nasal Cannula Oxygen Delivery Method [2] Nasal Cannula Oxygen Delivery Method [1 ( Room Air Initial Baseline)] Oxygen Delivery Method Room Air Weight: 173 lb 11.588 oz Body Mass Index (BMI) 25.7 Microbiology Past 72 Hours 05/16/19 10:54 Gram Stain - Final Fadi Dewitt Drainage Body Fluid Culture - Final Escherichia coli Klebsiella oxytoca Enterococcus gallinarum Anaerobic Culture - Final Clostridium clostridioforme Discharge Diet: Light diet - advance as tolerated - If you have questions about your diet instructions, please talk to your doctor. Discharge Activity: Return to Normal Activity, No Restrictions May shower in (days): 1 Call your doctor if your incision/area has: Continuous Slow Oozing, Sudden Increased Bleeding, Increased Pain/ Swelling, Increased Redness, Foul Smelling Discharge, Swelling at the incision site Call your doctor if you observe: Fever of 101 or Higher Suture Line Care: Avoid Pulling/Pushing, Avoid Pinching/Bending Cleanse incision/area with: Soap & Water, - - Do not get drain dressing wet. If any issues with drain dressing contact interventional radiology department at hospital for replacement. Drain: Suction Additional Dressing/Incision Instructions:: Empty bulb suction as needed. Home Medications: Medications to take at Discharge Lisinopril [Zestril] 40 mg PO DAILY 09/19/15 Meloxicam [Mobic] 15 mg PO DAILY 09/19/15 Epi Pen (for allergic rxn) [Epi Pen] 0.3 mg IM X1 09/25/15 Omeprazole [Prilosec] 20 mg PO DAILY 05/16/19 Amoxicillin/Potassium Clav [Augmentin 875-125 Tablet] 1 ea PO BID 10 Days #20 tab 05/18/19 Following Prescrptions Were Given to Patient: Amoxicillin/Potassium Clav [Augmentin 875-125 Tablet] 1 ea PO BID 10 Days #20 tab Transmission Status: Received by [facility] Primary Care Physician: Cirilo Carbajal MD [Primary Care Provider] - Please Follow Up With: Wilfrid Cohen MD When: Please call to schedule 2 week follow up appointment. [phone] Disposition: Home Minutes spent on discharge:: 20 Patient Condition:: Stable Medical Necessity - Tobacco Use Smoking Status: Former smoker Meaningful Use Info Meaningful Use Diagnoses (Choose all that apply): None applicable Code Visit Inpatient E&M: 45504 Disch Hosp
== END 2019-05-19 12:22 | disposition home or self-care (01) | DRG 871 ==
LOC: ED 08:09 → SDC 08:14 → ICU 10:48 → MS3 05-18 09:56
PROVIDERS: Admitting Provider Surgery; Emergency Provider Emergency Medicine; Family Provider Family Medicine; PCP Family Medicine; Visit Provider Surgery
PROC: 0FC98ZZ Extirpation of Matter from Common Bile Duct, Via Natural or Artificial Opening Endoscopic (ICD-10-PCS; CPT 43260; principal; 2019-05-18 09:30)
DX: A41.50 Gram-negative sepsis, unspecified (principal); R65.21 Severe sepsis with septic shock; N17.9 Acute kidney failure, unspecified; K80.31 Calculus of bile duct with cholangitis, unspecified, with obstruction; I10 Essential (primary) hypertension; Z87.891 Personal history of nicotine dependence
CPT/HCPCS: 71045; 71046; 74177; 74330; 75989; 76000; 80053; 83605; 83690; 83735; 84100; 84484; 85025; 85610; 85730; 87040; 87070; 87075; 87077; 87186; 87205; 93005; 99156; 99157; 99284; J2185; J7030; J7040; J7050; J7120; Q9967; A4216; C1751; J2405

== ENCOUNTER 2019-06-18 11:42 | Day surgery (SDC) | payer MEDICARE, BC, SELFPAY ==
[2019-05-18 09:25] VITALS: BMI 25.7
--- NOTE | 2019-06-13 07:10 | EKG12_ITS ---
Test Reason : PRE OP Blood Pressure : / mmHG Vent. Rate : 066 BPM Atrial Rate : 066 BPM P-R Int : 154 ms QRS Dur : 096 ms QT Int : 406 ms P-R-T Axes : -08 042 052 degrees QTc Int : 425 ms Normal sinus rhythm Incomplete right bundle branch block Borderline ECG Confirmed by STEVE TREVINO ([id number]), restaurant expeditor THEODORE LOREDO ([id number]) on 06/18/2019 12:11:02 PM Referred By: Wilfrid Cohen Confirmed By:STEVE TREVINO
[2019-06-13 08:12] LABS: Hemoglobin 13.2 g/dL (13.0-16.5); Mean Corp Hgb Conc 32.2 g/dL (32-36); Mean Corpuscular Hgb 31.4 pg (27.0-32.0); Mean Corpuscular Volume 97.4 fL (80-94); Mean Platelet Vol. 10.5 fl (6.2-12.0); Platelet Count 221 K/mm3 (150-450); RBC Distribution Width CV 13.8 % (11.6-14.6); RBC Distribution Width SD 49.8 fl (35.1-43.9); Red Blood Count 4.21 M/mm3 (4.6-6.2); White Blood Count 4.2 K/mm3 (4.4-11.0)
[2019-06-13 08:28] LABS: Prothrombin Time (Protime)PT. 12.9 SECONDS (11.7-14.9)
[2019-06-13 08:29] LABS: Partial Thromboplast Time 29.6 Seconds (24.1-36.2)
[2019-06-13 08:49] LABS: Anion Gap 3 (5-15); BUN 17 mg/dL (7-18); BUN/Creat Ratio 13.8 RATIO (10-20); Chloride 108 mmol/L (98-107); Creatinine, Serum 1.23 mg/dL (0.70-1.30); EST Glomerular Filtration Rate 62 mL/min (>60); Est Glom Filt Rate - Afr Amer 75 mL/min (>60); Glucose 94 mg/dL (74-106); Potassium 3.9 mmol/L (3.5-5.1); Sodium Level 139 mmol/L (136-145)
[2019-06-18] VITALS (10 sets, daily range): BP systolic 115–157; BP diastolic 56–87; PULSE 70–96; RESP 16–18; TEMP 36.1–37; O2SAT 94–99; BMI 25.0
--- NOTE | 2019-06-18 | GALL_PTH ---
PATIENT: DONALD CASTAÑEDA LOC: [facility] U#:[id number] AGE/SX: 68/M ROOM: RE06/18/[address]: Dr. Wilfrid Cohen MD : 1950 BED: DIS: 06/18/2019 SPEC #: [id number] RECD: 06/18/19 16:17 STATUS: JOSEPH CHRISTIANO #: [id number] JENNIFER: 06/18/19 00:[address]: Wilfrid Cohen DEPT: SURGICAL PATHOLOGY RECD BY: Maximino Xie ENTERED: 06/19/19 09:30 SP TYPE: QUINCY MCCLAIN DR: Dr. Cirilo Carbajal MD Tissues: Gallbladder, NOS Procedures: Surgery Specimen Level III HEADER OPERATION: Laparoscopic cholecystectomy with IOC PRE-OP DIAGNOSIS: Acute obstructive jaundice, acute cholangitis, acute septic shock TISSUE SUBMITTED: Gallbladder MICROSCOPIC DIAGNOSIS Gallbladder, cholecystectomy: Chronic follicular cholecystitis. No stones are identified in the container or in the gallbladder. SJ:shoaib 06/20/19 MICROSCOPIC DESCRIPTION Slides are reviewed. GROSS DESCRIPTION Received is one container labeled with the patient's name and designated gallbladder. The specimen consists of a gallbladder measuring 10 cm in length and up to 4 cm in diameter. The external surface is pink-cheung, smooth and glistening for the most part. Focally it is granular, hemorrhagic and contains cautery artifact. The gallbladder contains green-yellow mucoid bile. No stones are identified in the container or in the gallbladder. The mucosa is bile-stained and without any mass lesions. The gallbladder wall measures up to 0.2 cm in thickness. Scientific Affairs Manager sections from the gallbladder and the cystic duct are submitted in one cassette. / BERTHA:shoaib 06/19/19 TC:2 CPT: 47623
--- NOTE | 2019-06-18 11:58 | PCM.HP.STD ---
Problem List (1) Cholangitis Status: Acute History of Present Illness Date of Admission: 06/18/19 The patient is a 68 year old M who has a history of cholangitis and common bile duct stone. He had cholecystostomy tube placed and subsequent ERCP with stent placement. Cholecystostomy tube then became dislodged. Patient is reporting no pain or abdominal discomfort. No intolerance of food. No fevers or chills. Past Medical History Past Medical History (Chronic Problems): Chronic Problems (Last Reviewed 06/04/19 @ 09:27 by Laura Resendiz) HTN (hypertension) (Chronic) GERD (gastroesophageal reflux disease) (Chronic) Medical History: Medical History (Last Reviewed 06/04/19 @ 09:27 by Laura Resendiz) Obstructive jaundice (Acute) K83.1 Cholangitis (Acute) K83.09 Septic shock (Acute) A41.9, R65.21 HTN (hypertension) (Chronic) I10 Chest pain (Acute) R07.9 GERD (gastroesophageal reflux disease) (Chronic) K21.9 Allergies venom-honey bee [bee venom (honey bee)] Allergy (Verified 06/11/19 10:49) Anaphylaxis Home Medications: Ambulatory Orders Medication Instructions Recorded Lisinopril [Zestril] 40 mg PO DAILY 09/19/15 Meloxicam [Mobic] 15 mg PO DAILY 09/19/15 Epi Pen (for allergic rxn) [Epi 0.3 mg IM X1 09/25/15 Pen] Omeprazole [Prilosec] 20 mg PO DAILY 05/16/19 Surgical History: Surgical History (Last Reviewed 06/04/19 @ 09:27 by Laura Resendiz) S/P ERCP Z98.890 S/P laparoscopic cholecystectomy Z90.49 Surgical History: - - ERCP with stone removal in 2016 Psychiatric History: No pertinent psych hx Smoking Status: Former smoker Tobacco Use: Non-smoker - *Family History Paternal History Items: Heart Disease - Father history of Mi at age 69 Review of Systems Constitutional: Denies: Anorexia, Fever Cardiovascular: Denies: Chest Pain Respiratory: Denies: Cough, Shortness of Breath Gastrointestinal: Denies: Abdominal Pain, Nausea, Vomiting Skin: Denies: Dryness, Jaundice Psychiatric: Denies: Anxiety Endocrine: Denies: Change in Body Habitus Hematologic/ Lymphatic: Denies: Adenopathy VTE Information - Inpt Only VTE Present on Admission: No VTE Mechan Device Prophylaxis: SCD's - Physical Exam General: Alert, Oriented x3 Neck: No JVD Lungs: Normal air movement Cardiovascular: Regular rate, Regular Rhythm Abdomen: Soft, Non Tender, Non-Distended Body Mass Index (BMI) 25.7 Assessment/Plan All Active Problems (Last Reviewed 06/04/19 @ 09:27 by Laura Resendiz) Obstructive jaundice (Acute) Cholangitis (Acute) Septic shock (Acute) Chest pain (Acute) 68-year-old male with history of choledocholithiasis and cholangitis here for laparoscopic cholecystectomy. I discussed the procedure in detail with the patient. I discussed the risks, benefits, and alternatives of the procedure. I discussed the risks including but not limited to bleeding, infection, injury to surrounding organs such as the liver, bile duct, bowels. I did discuss the possibility of having to convert to an open procedure as well as the possibility that if any injuries occurred this may necessitate further surgery at a tertiary care center. Wilfrid Cohen MD Pager: [facility] [address] [place] [address] [address] [place] [address] Office:
[2019-06-18] MEDS: Lactated Ringers 1,000 ML 100 ML IV ×2 (12:37→15:22)
--- NOTE | 2019-06-18 13:15 | RAD_ITS ---
CLINICAL HISTORY: Male, 68 years old. Cholelithiasis PROCEDURE: CHOLANGIOGRAM - intraoperative FLUOROSCOPY TIME (if supplied): (0:25) minutes/seconds Placement of the catheter and the procedure were performed by: Operating surgeon Fluoroscopy was provided by biomedical engineering technologist, who was present in the room time of the procedure. Technique: Multiple fluoroscopic guided films were obtained in the anterior projection during intraoperative cholangiogram documenting procedure. For more complete information recommend correlation with surgical notes) RAD/Cholangiogram/ O R,Initial IMPRESSION: Fluoroscopic guided intraoperative cholangiogram Electronically Signed: Cirilo Summers MD at 22:54 EDT , Service support ,
[2019-06-18] MEDS: Bupiv/Epi 0.5% Mpf 30 ML Vial (14:38)
--- NOTE | 2019-06-18 15:06 | SUR.PHASEI ---
STATES MY CHEST HURTS... IT FEELS LIKE SOMETHINGS SITTING ON MY CHEST. DENIES NAUSEA, RADIATING PAIN, SKIN IS PINK, WARM, AND DRY. EKG SINUS RHYTHM/ARRYTHMIA WITH FREQUENT PAC'S ON ARRIVAL TO PACU FROM O.R. AND DISCUSSED SAME DURING SURGERY PER LUISANA SANTANA. O2 PLACED. NOTIFIED DR RICE, ORDERED STAT 12-LEAD EKG AND ONE TROPONIN, 320 MG PO CHEWABLE ASPIRIN. COMFORT AND REASSURANCE TO PATIENT.
--- NOTE | 2019-06-18 15:10 | EKG12_ITS ---
Test Reason : CP Blood Pressure : / mmHG Vent. Rate : 067 BPM Atrial Rate : 067 BPM P-R Int : 170 ms QRS Dur : 096 ms QT Int : 400 ms P-R-T Axes : 086 035 032 degrees QTc Int : 422 ms Sinus rhythm with Premature atrial complexes Otherwise normal ECG Confirmed by NELLIE MAX, VENKATA ([id number]), writer editor THEODORE LOREDO ([id number]) on 06/20/2019 2:25:41 PM Referred By: Wilfrid Cohen Confirmed By:VENKATA BALLARD MD
--- NOTE | 2019-06-18 15:14 | SUR.PHASEI ---
PATIENT NOW RUBBING ABDOMEN OVER UMBILICUS & EPIGASTRIUM WHILE STATING HE HAS CHEST PAIN, UPON FURTHER QUESTIONING, REPORT IT'S ACTUALLY HIS ABDOMEN THAT HURTS OVER UMBILICUS. STATES HE'S NEVER HAD SURGERY BEFORE, WAS NOT EXPECTING TO HAVE MUCH DISCOMFORT. VISIBLY ANXIOUS. DR RIEC NOTIFIED, NO CHANGES IN CURRENT ORDERS.
[2019-06-18] MEDS: Aspirin 81 MG TAB.CHEW 324 MG PO (15:40)
--- NOTE | 2019-06-18 15:55 | PCM.DC.GB ---
Discharge Diet: Light diet - advance as tolerated Discharge Activity: Return to Normal Activity, May Not Drive - for 2-3 days or while taking narcotic pain medicataions., - - Do not drive, work heavy equipment or sign legal documents for 24 hours. May shower in (days): 1 - with the bandage in place. Additional Activity Instructions:: Pain medication may cause nausea. You should typically eat light foods as you take your pain medications. Pain medication may also cause constipation. If this is a problem for you, please discuss with your doctor. Call your doctor if your incision/area has: Continuous Slow Oozing, Sudden Increased Bleeding, Increased Pain/ Swelling, Increased Redness, Foul Smelling Discharge, Fever of 101 or Higher Call your doctor if you observe: Fever of 101 or Higher Suture Line Care: Avoid Pulling/Pushing, Avoid Pinching/Bending Additional Dressing/Incision Instructions:: Leave operative bandaids on for 2 days. When you remove dressing, leave Steri-Strips on until your follow-up appointment, or until the Steri-Strips fall off on their own. Allergies/Adverse Reactions: Allergies venom-honey bee [bee venom (honey bee)] Allergy (Verified 06/18/19 12:17) Anaphylaxis Medications to take at Discharge Lisinopril [Zestril] 40 mg PO DAILY 09/19/15 Meloxicam [Mobic] 15 mg PO DAILY 09/19/15 Epi Pen (for allergic rxn) [Epi Pen] 0.3 mg IM X1 09/25/15 Omeprazole [Prilosec] 20 mg PO DAILY 05/16/19 Oxycodone HCl/Acetaminophen [Percocet 5/325] 1 - 2 tablet PO Q4H PRN PRN 7 Days #40 tablet 06/18/19 The following prescriptions were given: Oxycodone HCl/Acetaminophen [Percocet 5/325] 1 - 2 tablet PO Q4H PRN PRN 7 Days #40 tablet PRN Reason: Pain Transmission Status: Sent to [facility] Orders to be completed after discharge: 12 Lead EKG [CVS] Time Frame: 06/11/19, Facility: [facility], Location: Cardiovascular Services Basic Metabolic Profile (BMP) Time Frame: 06/11/19, Facility: [facility], Location: Laboratory CBC-Complete Blood Cnt No Diff Time Frame: 06/11/19, Facility: [facility], Location: Laboratory Partial Thromboplast Time Time Frame: 06/11/19, Facility: [facility], Location: Laboratory Prothrombin Time w/INR Time Frame: 06/11/19, Facility: [facility], Location: Laboratory Primary Care Physician: Cirilo Carbajal MD [Primary Care Provider] - Test Results: Test results from this visit will be discussed in further detail at your follow-up appointment, if applicable. Please Follow Up With: Wilfrid Cohen MD When: Please call to schedule 2 week follow up appointment. [phone]
--- NOTE | 2019-06-18 15:55 | PCM.OPRPT ---
Problem List (1) Cholangitis Status: Acute Report of Operation Date of Procedure: 06/18/19 Pre-Operative Diagnosis: Choledocholithiasis and cholangitis Post-Operative Diagnosis: Same Surgery/Procedure Performed:: Laparoscopic cholecystectomy with cholangiogram Specimen's removed: Gallbladder and contents Description of Procedure: After obtaining informed consent patient was brought back to the operating room. General anesthesia was induced. The abdomen was prepped and draped in usual sterile fashion. A small midline incision was made superior to the umbilicus and deepened to the level of fascia. The fascia was elevated and incised. Next the peritoneum was elevated and incised in the same fashion. Finger sweep was performed and the Alvares trocar was placed into the abdomen. The balloon was inflated. The abdomen was inflated to 15 mmHg. Next a camera was introduced into the abdomen and the abdomen was inspected. Next under direct visualization three 5-mm ports were placed one subxiphoid and 2 subcostal. Next the gallbladder was elevated and retracted toward the right shoulder. The peritoneum was stripped from the gallbladder. The infundibulum was located and retracted laterally. Next the triangle of Calot was dissected and the cystic duct and cystic artery were identified. Cholangiograms were performed. The Odonnell clamp was used to clamp across the infundibulum and the catheter needle was inserted into the gallbladder. Under fluoroscopy contrast was instilled into the gallbladder and the common duct, cystic duct as well as proximal hepatic ducts were identified. There was good filling of the duodenum. There appeared to be a filling defect in the common bile duct. The common bile duct had a previously placed stent in position. The clamp was removed as well as the needle and the infundibulum was grasped once more. Three hemolock clips were placed across the cystic duct. The cystic duct was then divided leaving 2 clips on the stump. The cystic artery was clipped and divided in the same fashion. The hook cautery was then used to take the gallbladder off of the gallbladder bed. Hemostasis was obtained. Gallbladder fossa was irrigated and no active bleeding or bile leakage was noted. Next the camera switched to a 5 mm camera and introduced in the subxiphoid port. An Endopouch bag was placed through the umbilical port and the gallbladder was placed into it. The gallbladder was then removed through the umbilical incision. The camera was then reinserted through the umbilical port. The gallbladder fossa was inspected once more and noted to be hemostatic with no leaking bile. The abdomen was suctioned dry. The 5 mm ports were removed under direct visualization. The umbilical port was then removed and the air was removed from the abdomen. Next using an 0 Vicryl suture the umbilical fascia was closed in a [id number] fashion. The umbilical port site was irrigated local anesthetic was administered to all the incisions. All the incisions were closed with interrupted subcuticular 4-0 Monocryl sutures followed by Steri-Strips and dressings. The patient was awoken and taken to PACU in stable condition. - Admit VTE Documentation VTE Mechan Device Prophylaxis: SCD's
--- NOTE | 2019-06-18 16:15 | SUR.PHASEI ---
NOW REPORTING NAUSEA, ORDER OBTAINED FOR PHENERGAN 6.25 MG IV X [address] RICE. AFTER NAUSEA RESOLVED, ENCOURAGING DEEP BREATHING, COUGHING. REPORTS ABDOMEN TOLERABLE, DOES CONTINUE TO GUARD ABDOMEN. NEEDS MUCH ENCOURAGEMENT AND REASSURANCE.
== END 2019-06-18 18:42 | disposition home or self-care (01) ==
LOC: SDC 11:42 → AC 11:50
PROVIDERS: Anesthesiology; Family Provider Family Medicine; PCP Family Medicine; Referring Provider Surgery; Visit Provider Surgery
PROC: (CPT 47610; principal; 2019-06-18 12:55)
DX: K80.44 Calculus of bile duct with chronic cholecystitis without obstruction (principal); K80.32 Calculus of bile duct with acute cholangitis without obstruction; I10 Essential (primary) hypertension; K21.9 Gastro-esophageal reflux disease without esophagitis; I45.10 Unspecified right bundle-branch block; Z86.19 Personal history of other infectious and parasitic diseases; Z90.49 Acquired absence of other specified parts of digestive tract; Z79.899 Other long term (current) drug therapy; Z87.891 Personal history of nicotine dependence
CPT/HCPCS: 47563; 36415; 74300; 76000; 80048; 84484; 85027; 85610; 85730; 88304; 93005; J7120; J2405

== ENCOUNTER 2019-06-21 08:06 | Day surgery (SDC) | payer MEDICARE, BC, SELFPAY ==
[2019-05-18 09:25] VITALS: BMI 25.7
[2019-06-18 12:20] VITALS: BMI 25.0
[2019-06-21 08:24] VITALS: BP 137/76; PULSE 98; RESP 15; TEMP 36.7; O2SAT 98; BMI 24.9
[2019-06-21] MEDS: Lactated Ringers 1,000 ML 100 ML IV (08:35)
--- NOTE | 2019-06-21 09:45 | RAD_ITS ---
ERCP INDICATION: Abdominal pain. TECHNIQUE: Fluoroscopy the abdomen was utilized during ERCP and 2 images suspended for interpretation. Next FINDINGS: Contrast is seen within the common bile duct with a basket. IMPRESSION: Fluoroscopy during ERCP. Electronically Signed: Beni Conteh MD at 8:10 EDT Tel , Service support , RAD/ERCP Biliary Only
--- NOTE | 2019-06-21 09:48 | HP.PCM_ITS ---
Problem List (1) Cholangitis Status: Acute History and Physical Date of Admission: 06/21/19 History of Present Illness Date of Admission: 06/21/19 The patient is a 68 year old M who has a history of cholangitis and common bile duct stone. He had cholecystostomy tube placed and subsequent ERCP with stent placement. Cholecystostomy tube then became dislodged. Patient is reporting no pain or abdominal discomfort. No intolerance of food. No fevers or chills. Past Medical History Past Medical History (Chronic Problems): Chronic Problems (Last Reviewed 06/04/19 @ 09:27 by Laura Resendiz) HTN (hypertension) (Chronic) GERD (gastroesophageal reflux disease) (Chronic) Medical History: Medical History (Last Reviewed 06/04/19 @ 09:27 by Laura Resendiz) Obstructive jaundice (Acute) K83.1 Cholangitis (Acute) K83.09 Septic shock (Acute) A41.9, R65.21 HTN (hypertension) (Chronic) I10 Chest pain (Acute) R07.9 GERD (gastroesophageal reflux disease) (Chronic) K21.9 Allergies venom-honey bee [bee venom (honey bee)] Allergy (Verified 06/11/19 10:49) Anaphylaxis Home Medications: Ambulatory Orders Medication Instructions Recorded Lisinopril [Zestril] 40 mg PO DAILY 09/19/15 Meloxicam [Mobic] 15 mg PO DAILY 09/19/15 Epi Pen (for allergic rxn) [Epi 0.3 mg IM X1 09/25/15 Pen] Omeprazole [Prilosec] 20 mg PO DAILY 05/16/19 Surgical History: Surgical History (Last Reviewed 06/04/19 @ 09:27 by Laura Resendiz) S/P ERCP Z98.890 S/P laparoscopic cholecystectomy Z90.49 Surgical History: - - ERCP with stone removal in 2016 Psychiatric History: No pertinent psych hx Smoking Status: Former smoker Tobacco Use: Non-smoker - *Family History Paternal History Items: Heart Disease - Father history of Mi at age 69 Review of Systems Constitutional: Denies: Anorexia, Fever Cardiovascular: Denies: Chest Pain Respiratory: Denies: Cough, Shortness of Breath Gastrointestinal: Denies: Abdominal Pain, Nausea, Vomiting Skin: Denies: Dryness, Jaundice Psychiatric: Denies: Anxiety Endocrine: Denies: Change in Body Habitus Hematologic/ Lymphatic: Denies: Adenopathy VTE Information - Inpt Only VTE Present on Admission: No VTE Mechan Device Prophylaxis: SCD's - Physical Exam General: Alert, Oriented x3 Neck: No JVD Lungs: Normal air movement Cardiovascular: Regular rate, Regular Rhythm Abdomen: Soft, Non Tender, Non-Distended Body Mass Index (BMI) 25.7 Assessment/Plan All Active Problems (Last Reviewed 06/04/19 @ 09:27 by Laura Resedniz) Obstructive jaundice (Acute) Cholangitis (Acute) Septic shock (Acute) Chest pain (Acute) 68-year-old male with history of choledocholithiasis and cholangitis here for ERCP. The patient had laparoscopic cholecystectomy 2 days ago and this was uneventful. He went home after surgery. On cholangiogram it appears there is still stone in the duct along with the stent. He is here today for ERCP with stent removal and hopeful stone removal. I discussed this with him and discussed the risks including but not limited to bleeding, infection, pancreatitis, perforation of the bowel or bile duct. Patient understands risks and is willing to proceed. I did inform the patient that if the stone was unable be removed I would replace it with a new stent and try again in 1 month. Wilfrid Cohen MD Pager: [facility] [address] [place] [address], [address] [place] [address] Office:
--- NOTE | 2019-06-21 10:19 | SUR.OPER ---
ANESTHESIA STUDENT IN ROOM.
[2019-06-21 10:34] VITALS: BP 127/66; BP 137/66; PULSE 98; RESP 16; TEMP 36.5; O2SAT 94
[2019-06-21 10:45] VITALS: BP 127/83; BP 137/66; PULSE 93; RESP 16; O2SAT 92
--- NOTE | 2019-06-21 10:49 | OP.ENDO_ITS ---
06/21/2019 Cirilo Carbajal Re : ERCP procedure for Ramon Uribe Dear [place] This procedure was performed on June. My impressions and recommendations are as follows: Impressions : - Choledocholithiasis was found. Complete removal was accomplished by balloon extraction. - One stent was removed from the biliary tree. - The biliary tree was swept. Recommendations : - Discharge patient to home. - Resume previous diet. - Continue present medications. My findings are described in the full procedure note, which is enclosed. If I can be of further assistance, please feel free to contact me at Doctor phone number(s): , Work: . Sincerely, Wilfrid Cohen MD 06/21/2019 10:49:04 AM This report has been signed electronically.
[2019-06-21 11:00] VITALS: BP 137/66; BP 140/80; PULSE 89; RESP 16; TEMP 36.6; O2SAT 96
[2019-06-21 11:22] VITALS: BP 137/66
== END 2019-06-21 11:23 | disposition home or self-care (01) ==
LOC: EN 08:07 → AC 08:08
PROVIDERS: Family Provider Family Medicine; PCP Family Medicine; Referring Provider Family Medicine; Visit Provider Surgery
PROC: (CPT 43260; principal; 2019-06-21 09:15)
DX: K80.50 Calculus of bile duct without cholangitis or cholecystitis without obstruction (principal); Z46.59 Encounter for fitting and adjustment of other gastrointestinal appliance and device; I10 Essential (primary) hypertension; K21.9 Gastro-esophageal reflux disease without esophagitis; Z79.899 Other long term (current) drug therapy; Z87.891 Personal history of nicotine dependence
CPT/HCPCS: 43275; 74328; 76000; J7120; J2405

== ENCOUNTER 2019-08-23 11:08 | Emergency (ER) | payer MEDICARE, BC, SELFPAY ==
[2019-08-23 11:14] VITALS: BP 162/93; PULSE 106; RESP 17; TEMP 36.8; O2SAT 97; BMI 24.3
[2019-08-23 11:20] VITALS: BP 162/93; PULSE 410; RESP 18; O2SAT 98
--- NOTE | 2019-08-23 11:37 | RAD_ITS ---
STUDY: X-RAY CHEST REASON FOR EXAM: Male, 68 years old. Shortness of breath and dizziness. TECHNIQUE: Single AP portable view of the chest. COMPARISON: Comparison is made with prior study dated May 16, 2019. FINDINGS: EKG electrodes are seen. Mild increased markings at the right lung base suggests linear atelectasis/scarring. There is no demonstrated pleural abnormality. Normal size heart. Normal mediastinum and pedrito. Normal visualized pulmonary arteries. There is atherosclerotic calcification of the aortic arch with tortuosity. There are diffuse degenerative changes of the visualized thoracic spine. Normal visualized ribs, clavicles, and shoulders. There is no demonstrated abnormality of the visualized soft tissue structures of the upper abdomen. RAD/Chest 1 View (Portable) IMPRESSION: Minimal increased linear markings at the right lung base suggests of linear atelectasis and/or scarring. Electronically Signed: Hector Canales, at 11:59 EST , Service support ,
--- NOTE | 2019-08-23 11:38 | EKG12_ITS ---
Test Reason : PALPS Blood Pressure : / mmHG Vent. Rate : 118 BPM Atrial Rate : 094 BPM P-R Int : 000 ms QRS Dur : 088 ms QT Int : 330 ms P-R-T Axes : 000 020 036 degrees QTc Int : 462 ms Atrial fibrillation with rapid ventricular response with premature ventricular or aberrantly conducte d complexes Abnormal ECG Confirmed by STEVE TREVINO ([id number]), medical transcription editor THEODORE LOREDO ([id number]) on 08/29/2019 12:53:26 PM Referred By: ANGUS Confirmed By:STEVE TREVINO
--- NOTE | 2019-08-23 11:39 | ED.DCSUM_ITS ---
History of Present Illness Chief Complaint: Dizziness Informant: Patient, Significant Other Onset: Days Context: Gradual Onset Narrative: Patient is a 68-year-old male with history of hypertension and GERD presenting with irregular heart rate and lightheadedness. Patient states he has been having upper respiratory symptoms for the past 2 weeks and thought he had a cold. [facility] where his heart beat was found to be irregular. He was then sent to the emergency room for further evaluation. Patient also notes over the past week whenever he stands up he feels lightheaded. He states he has had in the past but has been much more pronounced. He notes last week when he stood up quickly he passed out. He woke up on the ground quickly afterwards. He denies any seizure activity. He denies any chest pain or difficulty breathing. He notes that he has been having some worsening shortness of breath over the past week or so but attributed that to his cold. He notes he has some chronic dyspnea on exertion when he climbs 2 flights of stairs but that is unchanged. He denies any abdominal pain, nausea or vomiting. He denies any fever, weight loss, urinary symptoms or leg swelling. Patient was hospitalized 2 months ago for sepsis and cholecystitis. He notes a sister had a stroke when she was in her 40s. He denies any other complaints at this time. Past Medical History - Allergies and Home Meds Allergies/Adverse Reactions: Allergies venom-honey bee [bee venom (honey bee)] Allergy (Verified 08/23/19 11:19) Anaphylaxis Primary Care Physician: Cirilo Carbajal MD [Primary Care Provider] - Past Medical History: - - GERD, HTN Surgical History: - - ERCP with stone removal in 2016 Lives: Spouse/ Significant Other Smoking Status: Former smoker - Family History Paternal Family History: Reports: Heart Disease - Father history of Mi at age 69 Review of Systems General: Reports: - - lightheaded . Denies: Chills, Fever, Sweats Eyes: Denies: Visual changes - bilaterally, Diplopia ENT: Reports: Rhinorrhea, Sore throat, - - nasal congestion Cardiovascular: Denies: Chest pain, Palpitations Respiratory: Reports: Dyspnea, Cough. Denies: Dyspnea on exertion Gastrointestinal: Denies: Abdominal pain, Nausea, Vomiting, Diarrhea, Melena, Hematochezia Genitourinary: Denies: Dysuria, Hematuria, Frequency Musculoskeletal: Denies: Back pain, Extremity Pain Skin: Denies: Rash, Wounds Neurological: Reports: Weakness - generalized . Denies: Headache, Numbness Physical Exam Vital Signs/Narrative: Vital Signs Temp Pulse Resp BP Pulse Ox 08/23/19 11:20 410 H 18 162/93 H 98 08/23/19 11:14 98.2 F 106 H 17 162/93 H 97 Inital Vital Signs reviewed: Yes General: Well nourished, Well developed, No Acute Distress Head: Normocephalic, Atraumatic Eyes: Perrl, EOMI ENT: No rhinorrhea, TM's clear, Nasal congestion Neck: Supple, Nontender, No lymphadenopathy, No JVD Cardiovascular: No murmurs, Irregular, Tachycardia Respiratory: No distress, CTA bilaterally, Chest nontender Abdomen: Soft, Nontender, Nondistended, Normal bowel sounds Back: Nontender, Normal Inspection Extremities: Nontender, No edema Skin: Normal color, No rash Neurological: Alert, Oriented x3, Cranial nerves II-XII grossly intact, Normal Strength, Normal Sensation Psychological: Normal affect, Normal Mood Diagnostic/Tx/Re-eval Chest X-Ray - ED: 1 View, Read by ED Physician, Read by Radiologist, No Acute Disease Clinical Impression(s) from Imaging Studies Chest X-Ray 08/23/19 11:37 IMPRESSION: Minimal increased linear markings at the right lung base suggests of linear atelectasis and/or scarring. Electronically Signed: Hector Canales, at 11:59 EST , Service support , Chest CTA 08/23/19 12:23 IMPRESSION: No demonstrated pulmonary embolism or arterial dissection. Bibasilar pulmonary nodules as described above. Please see follow-up recommendations listed at the end of this report Pneumobilia is demonstrated within the liver. Findings discussed with Physician: Shruthi Parry by Dr. Ramírez on 08/23/2019 1:36 PM via telephone. Electronically Signed: Edmar Ramírez, at 13:38 EST Tel , Service support , Laboratory Data 08/23/19 08/23/19 08/23/19 11:25 11:25 11:25 WBC 11.9 H RBC 5.17 Hgb 14.6 Hct 43.7 MCV 84.5 MCH 28.2 MCHC 33.4 RDW Std Deviation 42.4 RDW Coeff of Roly 13.8 Plt Count 346 MPV 9.3 Immature Gran % (Auto) 0.500 Neut % (Auto) 84.3 H Lymph % (Auto) 7.9 L [place] % (Auto) 5.9 Eos % (Auto) 1.2 Baso % (Auto) 0.2 Absolute Neuts (auto) 10.0 H Absolute Lymphs (auto) 0.94 Nucleated RBC % 0 PT 13.5 INR 1.1 APTT 33.6 D-Dimer Quant (PE/DVT) 7.12 H* Sodium 134 L Potassium 4.7 Chloride 102 Carbon Dioxide 26.0 Anion Gap 6 BUN 31 H Creatinine 1.29 Estim Creat Clear Calc 57.38 Est GFR (MDRD) Af Amer 71 Est GFR (MDRD) Non-Af 59 L BUN/Creatinine Ratio 24.0 H Glucose 129 H Calcium 9.9 Troponin I < 0.015 TSH 3.03 Urine Color Urine Clarity Urine pH Ur Specific Treadwell Urine Protein Urine Glucose (UA) Urine Ketones Urine Occult Blood Urine Nitrite Urine Bilirubin Urine Urobilinogen Ur Leukocyte Esterase Urine RBC Urine WBC Ur Squamous Epith Cells Urine Bacteria Urine Mucus 08/23/19 13:00 WBC RBC Hgb Hct MCV MCH MCHC RDW Std Deviation RDW Coeff of Roly Plt Count MPV Immature Gran % (Auto) Neut % (Auto) Lymph % (Auto) [place] % (Auto) Eos % (Auto) Baso % (Auto) Absolute Neuts (auto) Absolute Lymphs (auto) Nucleated RBC % PT INR APTT D-Dimer Quant (PE/DVT) Sodium Potassium Chloride Carbon Dioxide Anion Gap BUN Creatinine Estim Creat Clear Calc Est GFR (MDRD) Af Amer Est GFR (MDRD) Non-Af BUN/Creatinine Ratio Glucose Calcium Troponin I TSH Urine Color Straw Urine Clarity Clear Urine pH 7.0 Ur Specific Treadwell 1.005 Urine Protein Negative Urine Glucose (UA) Normal Urine Ketones Negative Urine Occult Blood Negative Urine Nitrite Negative Urine Bilirubin Negative Urine Urobilinogen Normal Ur Leukocyte Esterase Negative Urine RBC 0 SEEN Urine WBC 0 SEEN Ur Squamous Epith Cells 0 SEEN Urine Bacteria 0 SEEN Urine Mucus 0 SEEN - Rhythm Strip Rhythm Strip: A-fib Rate: 111 Ectopy: None - EKG Initial EKG Interpretation: Atrial Fibrillation, - - Atrial fibrillation at a rate of 118 QRS 88 QTc [address] segments - Medical Decision Making Patient is evaluated for upper respiratory symptoms and lightheadedness. He was found to be in atrial fibrillation. He is mildly tachycardic but not rapid ventricular response. He is not have ST segment abnormalities on his EKG. Troponin is normal. Patient is known to have a history of A. fib. TSH is normal. He does have a significantly elevated d-dimer and recent surgery so a CTA is obtained. This does not show any acute PE. He is incidentally found to have air in his biliary tree. Discussed with his surgeon, , states this can be expected as patient had a sphincterotomy associated with his keri docholithiasis. On reevaluation patient is not having tenderness in his right upper quadrant. Patient is relatively rate controlled. His chads vas 2 score is 2 and he will require anticoagulation for atrial fibrillation to prevent stroke. Patient started on Eliquis and given first dose in the emergency room as well as first dose of metoprolol. I did contact his PCP, Dr. Carbajal, who was agreeable to this plan. Patient states he would like to go home and feels well enough to go home. Patient did have an episode of syncope a week ago but as he has maintained hemodynamic stability I do not think he requires admission for it at this time. He is counseled he does not need to take antibiotics prescribed to him by the urgent care today as I suspect his upper respiratory symptoms are viral in nature. He is counseled on the risk of anticoagulation and watch for signs of GI bleeding. Patient is counseled on signs and symptoms requiring return to the emergency room. Patient verbalizes agreement and understand this plan. Patient discharged home in stable and improved condition. ED Disposition - Plan for ED Patient: Disposition: Home or Assisted Living Diagnosis: Atrial fibrillation, URI (upper respiratory infection) Instructions: Atrial Fibrillation, DIZZINESS, Unk Cause, URI, Viral, No Abx (Adult) Prescriptions: Apixaban [Eliquis] 5 mg PO BID #60 tab Prescription Printed Metoprolol Tartrate 25 mg PO BID #60 tab Prescription Printed Referrals: Cirilo Carbajal MD [Primary Care Provider] - Additional Instructions: Your have been diagnosed with an abnormal heart rhythm called atrial fibrillation. It does increase her risk of stroke which is raised and started on a blood thinner (Eliquis) as well as a medication to control your heart rate (Metoprolol). You do not have a blood clot in your lungs or signs of pneumonia. Your CT did show some air around your liver but I believe this is from your recent surgery. I believe your upper respiratory symptoms are viral. I do not think you need antibiotics. Make sure you follow-up early next week with your primary care doctor. You have been given information for local doctor in case she want to transfer. Please return the emergency room if you have any further episodes of syncope/passing out or if you continue to feel lightheaded, if you develop chest pain, difficulty breathing or black/bloody stools.
[2019-08-23 11:48] LABS: Absolute Lymphocyte Count 0.94 X10^3/uL (0.83-4.51); Basophil# 0.02 X10^3/uL; Basophil% 0.2 % (0-1); Eosinophil# 0.14 X10^3/uL; Eosinophils% 1.2 % (0-5); Hematocrit 43.7 % (40-54); Hemoglobin 14.6 g/dL (13.0-16.5); Lymphocyte # 0.94 X10^3/ul (4.0); Lymphocyte % 7.9 % (19-41); Mean Corp Hgb Conc 33.4 g/dL (32-36); Mean Corpuscular Hgb 28.2 pg (27.0-32.0); Mean Corpuscular Volume 84.5 fL (80-94); Mean Platelet Vol. 9.3 fl (6.2-12.0); Monocyte% 5.9 % (0-10); NRBC Flagged by Analyzer 0 % (0-5); Neutrophil # 10.01 X10^3/uL (2.7-7.7); Neutrophil % 84.3 % (47-70); Platelet Count 346 K/mm3 (150-450); RBC Distribution Width CV 13.8 % (11.6-14.6); RBC Distribution Width SD 42.4 fl (35.1-43.9); Red Blood Count 5.17 M/mm3 (4.6-6.2); White Blood Count 11.9 K/mm3 (4.4-11.0)
[2019-08-23 11:52] LABS: International Normalized Ratio 1.1; Prothrombin Time (Protime)PT. 13.5 SECONDS (11.7-14.9)
[2019-08-23 11:53] LABS: Partial Thromboplast Time 33.6 Seconds (24.1-36.2)
[2019-08-23 12:05] LABS: Anion Gap 6 (5-15); BUN 31 mg/dL (7-18); Calcium,Total 9.9 mg/dL (8.5-10.1); Chloride 102 mmol/L (98-107); Creatinine, Serum 1.29 mg/dL (0.70-1.30); EST Glomerular Filtration Rate 59 mL/min (>60); Est Glom Filt Rate - Afr Amer 71 mL/min (>60); Estimated Creatinine Clearance 57.38 ml/min; Glucose 129 mg/dL (74-106); Potassium 4.7 mmol/L (3.5-5.1); Sodium Level 134 mmol/L (136-145); Thyroid Stim Hormone (TSH) 3.03 uIU/mL (0.358-3.74)
[2019-08-23 12:10] LABS: D-Dimer Quantitative (DVT/PE) 7.12 FEU/ug/m (0.27-0.49)
--- NOTE | 2019-08-23 12:23 | CT_ITS ---
STUDY: CTA CHEST REASON FOR EXAM: Male, 68 years old. Shortness of breath. RADIATION DOSAGE (If Supplied By Facility): CTDIvol = ( 12.23 ) mGy, DLP = ( 353.72 ) mGycm TECHNIQUE: The examination was performed with the intravenous administration of 100CC ISOVUE 370. Post-processing of the angiographic images was performed, with multiplanar reformation and 3D reconstruction. Individualized dose optimization techniques were used for this CT. COMPARISON: CT abdomen 05/16/2019. FINDINGS: Normal enhancement of the main pulmonary artery and right and left pulmonary arteries. Normal enhancement of the bilateral peripheral pulmonary arteries. There is no demonstrated pulmonary embolism. There is atherosclerotic calcification of the aortic arch with tortuosity. There is no demonstrated aortic dissection. Normal heart and pericardium. Coronary artery calcifications are present. Normal mediastinum. Normal hilar regions. Normal visualized trachea and bronchi. The lungs are well expanded. 7 mm left basilar nodule. 7 mm right basilar nodule. Apical scarring and bullous disease. Moderate emphysema. Normal pleura. Normal chest wall structures. Normal osseous structures. There is a small hiatal hernia. Pneumobilia is present. Diverticulosis. CT/CTA Chest W/WO Contrast IMPRESSION: No demonstrated pulmonary embolism or arterial dissection. Bibasilar pulmonary nodules as described above. Please see follow-up recommendations listed at the end of this report Pneumobilia is demonstrated within the liver. Findings discussed with Physician: Shruthi Parry by Dr. Ramírez on 08/23/2019 1:36 PM via telephone. Electronically Signed: Edmar Ramírez, at 13:38 EST Tel , Service support ,
[2019-08-23 13:08] LABS: Bacteria 0 SEEN /hpf (None Seen); Mucous, Urine 0 SEEN /hpf (<or=2+); Red Blood Cells-Urine 0 SEEN /hpf (0-5); Squamous Epithelial Cells - UA 0 SEEN /hpf (0-5); White Blood Cells 0 SEEN /hpf (0-5)
[2019-08-23 13:15] VITALS: BP 136/54; PULSE 106; RESP 21; O2SAT 96
[2019-08-23 13:16] LABS: Color, Urine Straw (Yellow); Glucose, Dipstick Normal (Normal); Ketone-Dipstick Negative (Negative); Leukocyte Esterase-Dipstick Negative /ul (Negative); Nitrite-Dipstick Negative (Negative); Occult Blood-Urine Negative /ul (Negative); Protein-Dipstick Negative (Negative); Specific Gravity, Urine 1.005 (1.002-1.030); Urine Bilirubin Dipstick Negative (Negative); Urine Clarity Clear (Clear); Urine Urobilinogen Normal (Normal)
[2019-08-23] MEDS: APIXABAN 5 MG TABLET PO (14:29)
[2019-08-23] MEDS: Metoprolol Tartrate 25 MG Tablet PO (14:30)
[2019-08-23 15:19] VITALS: BP 126/83; PULSE 83; RESP 18; O2SAT 96
== END 2019-08-23 15:21 | disposition home or self-care (01) ==
PROVIDERS: Emergency Provider Emergency Medicine; Family Provider Family Medicine; PCP Family Medicine
DX: I48.91 Unspecified atrial fibrillation (principal); J06.9 Acute upper respiratory infection, unspecified; R79.89 Other specified abnormal findings of blood chemistry; I10 Essential (primary) hypertension; K21.9 Gastro-esophageal reflux disease without esophagitis; Z86.19 Personal history of other infectious and parasitic diseases; Z87.19 Personal history of other diseases of the digestive system; Z79.899 Other long term (current) drug therapy; Z87.891 Personal history of nicotine dependence
CPT/HCPCS: 71045; 71275; 80048; 81001; 84443; 84484; 85025; 85379; 85610; 85730; 93005; 99284; J7030; Q9967

== ENCOUNTER 2022-05-06 23:00 | Emergency (ER) | payer MEDICARE, BC, SELFPAY ==
[2022-05-06 23:01] VITALS: BP 111/73; PULSE 100; RESP 16; TEMP 36.5; O2SAT 98; BMI 24.3
--- NOTE | 2022-05-06 23:49 | CT_ITS ---
STUDY: CT BRAIN WITHOUT CONTRAST REASON FOR EXAM: Male, 71 years old. headache RADIATION DOSAGE (If Supplied By Facility): CTDIvol = ( 44.99 ) mGy, DLP = ( 812.98 ) mGycm TECHNIQUE: Transaxial CT imaging of the brain was performed without administration of intravenous contrast material. Individualized dose optimization techniques were used for this CT. COMPARISON: No relevant priors. FINDINGS: Normal soft tissue structures. Normal calvarium. There is mild cerebral atrophy with widening of the extra-axial spaces and ventricular dilatation. There are areas of decreased attenuation within the white matter tracts of the supratentorial brain, consistent with microvascular disease changes. Normal basal ganglia and thalami. Normal brainstem. Normal cerebellum. There is no intracranial hemorrhage. There are no findings of an acute ischemic infarction. Normal visualized paranasal sinuses. CT/Brain/Head without Contrast IMPRESSION: Chronic involutional changes of the brain. Electronically Signed: Prince Alfonso DO at 0:44 EDT ,
--- NOTE | 2022-05-07 01:03 | EDS_ITS ---
HPI History of Present Illness Chief Complaint: Headache Narrative Narrative: Patient is a 71-year-old male with past medical history of hypertension GERD and cholangitis who is on anticoagulation with Eliquis. Patient states that this evening he was sitting at home when he developed a headache along the right parietal portion of his scalp. He states it is sharp in nature and radiates back towards his neck. He states there was no loss of consciousness with the headache and he denies any photophobia or phonophobia. He states there is also no trauma and has been otherwise feeling at his baseline. However as this headache is not normal for him he presents for evaluation [facility] Medical History (Updated 05/07/22 @ 01:[address] Jayson Higuera DO) Chest pain Cholangitis Chronic cholecystitis GERD (gastroesophageal reflux disease) HTN (hypertension) Obstructive jaundice Septic shock Home Medications lisinopril 20 mg tablet 40 mg PO DAILY BP 09/19/15 [History Last Taken 06/21/19 05:00] meloxicam 15 mg tablet 15 mg PO DAILY Check with primary doctor 09/19/15 [History Last Taken 05/15/19] epinephrine 0.3 mg/0.3 mL injection, auto-injector 0.3 mg IM X1 09/25/15 [History Last Taken Unknown] omeprazole 20 mg capsule,delayed release 20 mg PO DAILY Acid Reflux 05/16/19 [History Last Taken 06/21/19 05:00] amoxicillin 875 mg-potassium clavulanate 125 mg tablet 1 tab PO BID 08/23/19 [History Last Taken Unknown] apixaban 5 mg tablet 5 mg PO BID #60 tabs 08/23/19 [Rx Last Taken Unknown] metoprolol tartrate 25 mg tablet 25 mg PO BID #60 tabs 08/23/19 [Rx Last Taken Unknown] Allergy/AdvReac Type Severity Reaction Status Date / Time venom-honey bee Allergy Anaphylaxis Verified 05/06/22 23:04 [bee venom (honey bee)] Surgical History S/P ERCP S/P laparoscopic cholecystectomy Social History (Updated 07/03/19 @ 13:[address] Wilfrid Cohen MD) Smoking Status: Unknown if ever smoked ROS ROS ED Constitutional Constitutional ED: Denies chills or fever(s) Eyes Eyes: Denies change in vision ENT ENT ED: Denies sore throat Cardiovascular Cardiovascular: Denies chest pain Respiratory/Chest Respiratory/Chest: Denies cough or dyspnea Gastrointestinal Gastrointestinal: Denies abdominal pain, diarrhea, nausea or vomiting Genitourinary Genitourinary ED: Denies dysuria Musculoskeletal Musculoskeletal: Denies myalgias or neck pain Integumentary Denies rash Neurologic Neurologic: Reports headache(s); Denies paresthesias or weakness Hematologic/Lymphatic Hematologic/Lymphatic: Reports easy bleeding and easy bruising EXAM Physical Exam Const Vital Signs: 05/06/22 23:01 05/07/22 01:08 Temperature 97.7 F L Temperature Source Oral Pulse Rate 100 92 Respiratory Rate 16 18 Blood Pressure 111/73 110/68 Blood Pressure Mean 85 Pulse Ox 98 98 Oxygen Delivery Method Room Air Positive well nourished and well developed General Appearance ED: well developed HEENT Reports moist mucous membranes Eyes PERRL and EOMs intact bilaterally Neck supple Neck Narrative: No meningeal signs Resp normal respiratory effort and clear to auscultation bilaterally Cardio regular rate and regular rhythm Extremity normal to inspection Neuro oriented x3 and CN's II-XII intact bilaterally Neuro Narrative: Cranial nerves II through XII are grossly intact. No focal neurologic deficit. No pronator drift. No dysmetria. No truncal ataxia. NIH stroke scale score of 0 Sensorium / Orientation: alert Psych mental status grossly normal Skin no rashes or lesions noted Skin Narrative: No overlying soft tissue changes to suggest trauma or infection noted MDM MDM MDM Narrative Medical decision making narrative: Patient presented to the ER with stable vitals and normal neurologic exam. He had no report or signs of trauma. However he is on anticoagulation and there is concern for a spontaneous brain bleed. Secondary to this a head CT was obtained. This revealed chronic age-related findings without acute change. On reevaluation he is resting comfortably and vitals remained stable and neuro exam. He also reports he has had improvement of his headache. Therefore at this time as CT is negative and patient is reported spontaneous improvement of his headache I do not feel there is need for further work-up and he is otherwise safe for discharge. Radiography Diagnostic Testing: Clinical Impression(s) from Imaging Studies Brain CT 05/06/22 23:49 IMPRESSION: Chronic involutional changes of the brain. Electronically Signed: Prince Alfonso DO at 0:44 EDT , Discharge Plan Triage Chief Complaint: Headache ED Provider: Jayson Higuera Dx/Rx/DC Orders Clinical Impression: Cephalgia, HTN (hypertension), Current use of parts counterman anticoagulation Instructions: ED Headache Unspecified Prescriptions: No Action meloxicam 15 MG tablet 15 mg PO DAILY Label Comments: heart lisinopril 20 MG tablet 40 mg PO DAILY Label Comments: blood pressure epinephrine 0.3 MG syringe 0.3 mg IM X1 omeprazole 20 MG capsule 20 mg PO DAILY Label Comments: reflux amoxicillin-pot clavulanate 1 EACH tablet 1 tab PO BID apixaban 5 MG tablet 5 mg PO BID Qty: 60 0RF metoprolol tartrate 25 MG tablet 25 mg PO BID Qty: 60 0RF Primary Care Provider: Cirilo Carbajal Referrals: Cirilo Carbajal MD [Primary Care Provider] - Activity Restrictions/Additional Instructions: If symptoms worsen or he have any further concerns please return to the ER for repeat evaluation Disposition Disposition: Home, Self Care Discharge Date/Time: 05/07/22 01:08
[2022-05-07 01:08] VITALS: BP 110/68; PULSE 92; RESP 18; O2SAT 98
== END 2022-05-07 01:08 | disposition home or self-care (01) ==
PROVIDERS: Emergency Provider Emergency Medicine; PCP Family Medicine; Visit Provider Emergency Medicine
DX: R51.9 Headache, unspecified (principal); I10 Essential (primary) hypertension; Z79.01 Long term (current) use of anticoagulants; K21.9 Gastro-esophageal reflux disease without esophagitis; Z79.899 Other long term (current) drug therapy; Z87.19 Personal history of other diseases of the digestive system
CPT/HCPCS: 70450; 99281

== ENCOUNTER 2024-12-07 20:04 | Emergency (ER) | payer MEDICARE, BC, SELFPAY ==
--- NOTE | 2024-12-07 20:02 | EKG12_ITS ---
Test Reason : CP Blood Pressure : */* mmHG Vent. Rate : 70 BPM Atrial Rate : 70 BPM P-R Int : 184 ms QRS Dur : 102 ms QT Int : 396 ms P-R-T Axes : 90 36 40 degrees QTcB Int : 427 ms Sinus rhythm with Premature atrial complexes Incomplete right bundle branch block Borderline ECG Confirmed by SAVAGE MAX, HENRY ([id number]), senior editor BLAISE HERCULES ([id number]) on 12/10/2024 9:33:01 AM Referred By: RU Confirmed By: HENRY WAN MD
[2024-12-07 20:04] VITALS: BP 118/71; PULSE 72; RESP 15; TEMP 36.6; O2SAT 96; BMI 25.3
--- NOTE | 2024-12-07 20:18 | ED.VIS.FALL ---
HPI <Mimi Blount RN - Last Filed: 12/07/24 20:37> HPI - Fall History of Present Illness Chief Complaint: Fall Detail of Chief Complaint: Fall off step into mulch Informant: patient and spouse/S.O. Occured/Mechanism Occurred: Today Fall down steps #: 1 Usually ambulates: Without assistance Pain/Injury Location: Head Pain Location: none Associated Symptoms Associated Symptoms: Positive for Loss of consciousness (Unknown); Negative for Parasthesias, Weakness, Loss of function or Inability to ambulate Length of loss of consciousness: Unknown Narrative Narrative: Patient is a 74-year-old male with past medical history significant for hypertension, hyperlipidemia, A-fib, GERD, and alcohol use who was taking a new puppy outside when he fell down 1 step and landed in [facility]. Patient and are unsure of LOC. However did say she was unable to get him up and called EMS. Patient is on Eliquis daily for A-fib. Patient denies any injuries or pain. He does have an abrasion to the left side of his forehead. He is unable to recall events leading to hospitalization. He denies any dizziness or lightheadedness. He denies vision changes. Patient was unsure if he had been drinking or not. His reports she had was not home today and was unsure if he was drinking as well. He denies nausea/vomiting, diarrhea. Tetanus Immunization: Unknown Prior similar symptoms: No Recent Illness/Hospitalization: No PFSH <Mimi Blount RN - Last Filed: 12/07/24 20:37> [facility] Medical History Chronic cholecystitis Septic shock Cholangitis Obstructive jaundice HTN (hypertension) Chest pain GERD (gastroesophageal reflux disease) Home Medications ?Medication ?Instructions ?Recorded ?Last Taken ?Type omeprazole 20 mg capsule,delayed 20 mg PO DAILY Acid Reflux 05/16/19 06/21/19 05:00 History release apixaban 5 mg tablet 5 mg PO BID #60 tabs 08/23/19 Unknown Rx lisinopril 30 mg tablet 30 mg PO DAILY 12/07/24 Unknown History metoprolol tartrate 25 mg tablet 50 mg PO DAILY 12/07/24 Unknown History tramadol 50 mg tablet 50 mg PO DAILY 12/07/24 12/07/24 History Allergy/AdvReac Type Severity Reaction Status Date / Time venom-honey bee (bee venom Allergy Anaphylaxis Verified 05/06/22 23:04 (honey bee)) Surgical History S/P ERCP S/P laparoscopic cholecystectomy Social History Smoking Status: Former smoker ROS <Mimi Blount RN - Last Filed: 12/07/24 20:37> ROS ED ROS Narrative Patient laying on ED cot. Awake and alert. at bedside. Denies dizziness or lightheadedness. Denies recent fever. Constitutional Constitutional ED: Denies chills or fever(s) Eyes Eyes: Denies blurry vision, change in vision or diplopia ENT ENT ED: Denies ear pain, rhinorrhea or sore throat Cardiovascular Cardiovascular: Denies chest pain or palpitations Respiratory/Chest Respiratory/Chest: Denies cough, dyspnea or dyspnea on exertion Gastrointestinal Gastrointestinal: Denies abdominal pain, constipation, diarrhea, nausea or vomiting Genitourinary Genitourinary ED: Denies dysuria Musculoskeletal Musculoskeletal: Denies arthralgias, back pain, myalgias or neck pain Neurologic Neurologic: Denies headache(s), paresthesias or weakness Psychiatric Psychiatric: Denies anxiety or depression Hematologic/Lymphatic Hematologic/Lymphatic: Reports easy bleeding EXAM <Mimi Blount RN - Last Filed: 12/07/24 20:37> Physical Exam Narrative Exam Narrative: Patient laying on the ED cot, awake and alert. at bedside. No acute distress noted. Patient cooperative with exam. Const Vital Signs: 12/07/24 20:04 12/07/24 20:07 12/07/24 21:04 Temperature 98 F Temperature Source Oral Pulse Rate 72 75 Respiratory Rate 15 16 Respiratory Effort Normal Blood Pressure 118/71 120/70 Blood Pressure Mean 86 86 Pulse Ox 96 97 Oxygen Delivery Method Room Air 12/07/24 22:00 Temperature Temperature Source Pulse Rate 84 Respiratory Rate 16 Respiratory Effort Blood Pressure 126/81 H Blood Pressure Mean 96 Pulse Ox 95 Oxygen Delivery Method Room Air Positive well nourished and well developed General Appearance ED: well developed and NAD HEENT Reports normocephalic HEENT Narrative: Abrasions to left forehead Eyes PERRL and EOMs intact bilaterally Neck no lymphadenopathy and supple Neck Narrative: C-collar placed by ED staff General: Negative for tenderness Chest Wall inspection of chest normal and palpation of chest normal Resp normal respiratory effort, no retractions and clear to auscultation bilaterally Auscultation: Negative for rales, rhonchi or wheezes Cardio S1 normal heart sound, S2 normal heart sound and no murmurs Cardio Narrative: History of A-fib GI non-tender, non-distended and no masses Auscultation: normoactive bowel sounds Palpation: soft Back/Spine Cervical Spine: Negative for cervical spine tenderness Lumbar Spine / Lower Back: Negative for lumbar spinal tenderness, paraspinal muscle tenderness or straight leg raise negative bilaterally Extremity Extremity Narrative: Full range of motion, atraumatic. MSPs intact x 4 Neuro oriented x3, CN's II-XII intact bilaterally, moves all extremities, no focal motor deficits and no sensory deficits noted Neuro Narrative: Patient unable to recall events leading to hospitalization. Oriented to person, place, year, month, day. Sensorium / Orientation: alert, oriented to person, oriented to place and oriented to time Motor Exam: strength 5/5 throughout Psych mental status grossly normal Skin Skin Narrative: [place], warm, dry. Abrasion to left forehead. Trauma: abrasion Image ED - Body Diagram Man:  1. Abrasion <Dr. Seferino Sexton MD - Last Filed: 12/07/24 22:40> Physical Exam Const Vital Signs: 12/07/24 20:04 12/07/24 20:07 12/07/24 21:04 Temperature 98 F Temperature Source Oral Pulse Rate 72 75 Respiratory Rate 15 16 Respiratory Effort Normal Blood Pressure 118/71 120/70 Blood Pressure Mean 86 86 Pulse Ox 96 97 Oxygen Delivery Method Room Air 12/07/24 22:00 Temperature Temperature Source Pulse Rate 84 Respiratory Rate 16 Respiratory Effort Blood Pressure 126/81 H Blood Pressure Mean 96 Pulse Ox 95 Oxygen Delivery Method Room Air MDM <Mimi Blount RN - Last Filed: 12/07/24 20:37> MDM MDM Narrative Medical decision making narrative: Saline lock initiated. Labs obtained including CBC, BMP, EtOH level. CT head and C-spine without contrast ordered due to patient with head injury on Eliquis. History & Record Review Discussion w/independent historian: Patient and Family Lab Data Labs: Laboratory Results - last 24 hr 12/07/24 20:08 WBC 5.1 RBC 4.39 L Hgb 13.5 Hct 38.9 L MCV 88.6 MCH 30.8 MCHC 34.7 RDW Std Deviation 43.3 RDW Coeff of Roly 13.4 Plt Count 219 MPV 10.6 Immature Gran % (Auto) 0.200 Neut % (Auto) 38.9 L Lymph % (Auto) 42.5 H [place] % (Auto) 14.3 H Eos % (Auto) 3.7 Baso % (Auto) 0.4 Absolute Neuts (auto) 2.0 Absolute Lymphs (auto) 2.17 Nucleated RBC % 0 Sodium 139 Potassium 3.8 Chloride 105 Carbon Dioxide 19.4 L Anion Gap 15 BUN 33 H Creatinine 1.70 H Estim Creat Clear Calc 39.96 L Est GFR (MDRD) Non-Af 42 L BUN/Creatinine Ratio 19.6 Glucose 111 H Calcium 9.0 Ethyl Alcohol 247.0 H Radiography Diagnostic Testing: Clinical Impression(s) from Imaging Studies Brain CT 12/07/24 20:20 IMPRESSION: 1. No acute intracranial finding. 2. Stable findings of chronic microvascular ischemic changes and age-related changes. Reading Location: [facility] Cervical Spine CT 12/07/24 20:20 IMPRESSION: 1. NO ACUTE CERVICAL FRACTURE. DEGENERATIVE CHANGES. 2. Severe emphysema. Reading Location: [facility] Differential Diagnosis Differential Diagnosis: Intracranial trauma/bleeding Differential Diagnosis: Closed head injury Differential Diagnosis: Fall Management Discussion w/another healthcare provider: Other (Dr. Sexton, ED provider.) <Dr. Seferino Sexton MD - Last Filed: 12/07/24 22:40> [facility] MDM Narrative Medical decision making narrative: Saline lock initiated. Labs obtained including CBC, BMP, EtOH level. CT head and C-spine without contrast ordered due to patient with head injury on Eliquis. I have personally performed a face to face assessment of the patient and have reviewed the FAHAD Note. I performed a substantive portion of the visit including all aspects of the following. My echevarria findings include: History is [74-year-old male history of A-fib on Eliquis. Denies walking his dog fell hit his forehead. No LOC. Came in for evaluation. Companied by his . Patient does admit to having several alcoholic beverages tonight.] Exam is [71-year-old male sitting upright in bed. Vital signs stable afebrile. C-collar in place. H EENT exam pupils round reactive light. Abrasion left forehead. Nothing to repair. No deep laceration. No dental injury. Scalp nontender no hematoma no laceration. Neck no specific spinal or tracheal tenderness. Back nontender. Lungs clear. Heart regular rhythm rate about 70 no murmur. Chest wall ribs nontender. Abdomen soft nontender. Pelvic girdle intact. Moving all 4 extremities. Normal range of motion. 5 out of 5 dice dealer strength. Dorsi plantarflexion intact. Neurologically is awake alert. Answering questions following commands. Most likely intoxicated.] Medical Decision Making [74-year-old male fall head injury on Eliquis CT of his head neck being obtained. Will get an alcohol level and screening labs.] Other additions or changes: [Repeat exam at 10:25 PM. Patient is doing well. He is awake and alert. They clean the abrasion on his forehead he does not need any laceration repair. I took the c-collar off his neck he does not have any specific spine or tracheal tenderness. Chest wall and abdomen are nontender. He is moving all 4 extremities.] History & Record Review Additional record(s) reviewed:: Prior inpatient record, Prior outpatient record, Prior ED visit and Prior labs Lab Data Attestation: I reviewed the patient's lab results. Lab results narrative: CBC shows a white count of 5. H&H 13 and 38. Platelets 219. Electrolytes show a gap of 15. BUN and creatinine 33 and 1.7. Glucose 111. Alcohol level 247. Labs: Laboratory Results - last 24 hr 12/07/24 20:08 WBC 5.1 RBC 4.39 L Hgb 13.5 Hct 38.9 L MCV 88.6 MCH 30.8 MCHC 34.7 RDW Std Deviation 43.3 RDW Coeff of Roly 13.4 Plt Count 219 MPV 10.6 Immature Gran % (Auto) 0.200 Neut % (Auto) 38.9 L Lymph % (Auto) 42.5 H [place] % (Auto) 14.3 H Eos % (Auto) 3.7 Baso % (Auto) 0.4 Absolute Neuts (auto) 2.0 Absolute Lymphs (auto) 2.17 Nucleated RBC % 0 Sodium 139 Potassium 3.8 Chloride 105 Carbon Dioxide 19.4 L Anion Gap 15 BUN 33 H Creatinine 1.70 H Estim Creat Clear Calc 39.96 L Est GFR (MDRD) Non-Af 42 L BUN/Creatinine Ratio 19.6 Glucose 111 H Calcium 9.0 Ethyl Alcohol 247.0 H Radiography Diagnostic Testing: Clinical Impression(s) from Imaging Studies Brain CT 12/07/24 20:20 IMPRESSION: 1. No acute intracranial finding. 2. Stable findings of chronic microvascular ischemic changes and age-related changes. Reading Location: [facility] Cervical Spine CT 12/07/24 20:20 IMPRESSION: 1. NO ACUTE CERVICAL FRACTURE. DEGENERATIVE CHANGES. 2. Severe emphysema. Reading Location: [facility] Discharge Plan Triage Chief Complaint: Fall ED Provider: Seferino Sexton Dx/Rx/DC Orders Clinical Impression: Fall, Closed head injury, Chronic anticoagulation, Forehead contusion, History of atrial fibrillation, Acute alcohol intoxication Instructions: ED Alcohol Intoxication, ED Head Injury (Adult) Prescriptions: No Action omeprazole 20 MG capsule 20 mg PO DAILY Patient Comments: reflux apixaban 5 MG tablet 5 mg PO BID Qty: 60 0RF lisinopril 30 mg tablet 30 mg PO DAILY tramadol 50 mg tablet 50 mg PO DAILY metoprolol tartrate 25 MG tablet 50 mg PO DAILY Primary Care Provider: Cirilo Carbajal Referrals: Cirilo Carbajal MD [Primary Care Provider] - As Needed Activity Restrictions/Additional Instructions: Tylenol for pain. Ice to your forehead. Keep the brace and clean. Clean daily with soap and water. Apply antibiotic ointment. CAT scan of your head and neck was good. Alcohol level was 250. I would not drink for the next 24 hours[address] not drive a car while drinking. Follow-up with your doctor as needed. If you would develop severe headaches, vomiting or not acting right you need to return to be reevaluated. You may have some headaches with a head trauma. Print Language: Lithuanian Disposition Disposition: Home, Self Care
--- NOTE | 2024-12-07 20:20 | CT_ITS ---
EXAM: BRAIN/HEAD WITHOUT CONTRAST CLINICAL HISTORY: 74 y/o M, FALL/TRAUMA, hand numbness RADIATION DOSE SUMMARY: CTDlvol: 45 mGy DLP: 830 mGycm COMPARISON: CT head 05/07/22 TECHNIQUE: Routine CT imaging of the head without IV contrast. Additional multiplanar reformats were obtained. Dose reduction techniques were used including intermediate exposure control (AEC),iterative reconstruction technique, and/or mA and/or KV dose adjustments based on patient's size. FINDINGS: Mild generalized cerebral volume loss with concordant prominence of the ventricles and subarachnoid spaces. Stable mild scattered supratentorial white matter hypodensities. Chronic lacunar type infarct within the right basal ganglia. No acute intracranial hemorrhage or herniation. The basal cisterns are patent. Retention cyst or polyp within the left frontal sinus. The visualized paranasal sinuses and mastoids are otherwise unremarkable. Prior right scleral banding. No acute calvarial fracture or scalp hematoma. CT/Brain/Head without Contrast IMPRESSION: 1. No acute intracranial finding. 2. Stable findings of chronic microvascular ischemic changes and age-related ch anges. Reading Location: [id number]
--- NOTE | 2024-12-07 20:20 | CT_ITS ---
PROCEDURE: SPINE CERVICAL WITHOUT CONTRAS 12/07/2024 REASON FOR EXAM: 74-year-old male, fall, trauma. TECHNIQUE: Cervical spine CT without contrast. Coronal and Sagittal reconstruction series were provided. One or more dose reduction techniques were used (e.g., Automated exposure control, adjustment of the mA and/or kV according to patient size, use of iterative reconstruction technique RADIATION DOSE SUMMARY: CTDlvol: 25 mGy DLP: 500 mGycm COMPARISON: None. FINDINGS: Alignment: No traumatic listhesis. Vertebrae: No acute osseous fracture. The vertebral body heights are maintained. Multilevel degenerative disc disease with posterior disc osteophyte complexes and facet hypertrophy results in moderate central spinal stenosis at C4-5 and C5-6, and moderate left neural foraminal stenosis at C4-5. Soft Tissues: No prevertebral or subcutaneous hematoma. Severe biapical emphysema. CT/Spine Cervical without Contras IMPRESSION: 1. NO ACUTE CERVICAL FRACTURE. DEGENERATIVE CHANGES. 2. Severe emphysema. Reading Location: [id number]
[2024-12-07 21:04] VITALS: BP 120/70; PULSE 75; RESP 16; O2SAT 97
[2024-12-07 21:04] LABS: Absolute Lymphocyte Count 2.17 X10^3/uL (0.83-4.51); Basophil# 0.02 X10^3/uL; Basophil% 0.4 % (0-1); Eosinophil# 0.19 X10^3/uL; Eosinophils% 3.7 % (0-5); Hematocrit 38.9 % (40-54); Hemoglobin 13.5 g/dL (13.0-16.5); Lymphocyte # 2.17 X10^3/ul (0.83-4.51); Lymphocyte % 42.5 % (19-41); Mean Corp Hgb Conc 34.7 g/dL (32-36); Mean Corpuscular Hgb 30.8 pg (27.0-32.0); Mean Corpuscular Volume 88.6 fL (80-94); Mean Platelet Vol. 10.6 fl (6.2-12.0); Monocyte# 0.73 X10^3/uL; Monocyte% 14.3 % (0-10); NRBC Flagged by Analyzer 0 % (0-5); Neutrophil # 1.98 X10^3/uL (2.7-7.7); Neutrophil % 38.9 % (47-70); Platelet Count 219 K/mm3 (150-450); RBC Distribution Width CV 13.4 % (11.6-14.6); RBC Distribution Width SD 43.3 fl (35.1-43.9); Red Blood Count 4.39 M/mm3 (4.6-6.2); White Blood Count 5.1 K/mm3 (4.4-11.0)
[2024-12-07 21:19] LABS: Anion Gap 15 (5-15); BUN 33 mg/dL (4-19); BUN/Creat Ratio 19.6 RATIO (10-20); Carbon Dioxide 19.4 mmol/L (21.0-32.0); Chloride 105 mmol/L (98-108); EST Glomerular Filtration Rate 42 (>60); Estimated Creatinine Clearance 39.96 ml/min (50-250); Glucose 111 mg/dL (70-99); Potassium 3.8 mmol/L (3.3-5.1); Sodium Level 139 mmol/L (133-145)
[2024-12-07 22:00] VITALS: BP 126/81; PULSE 84; RESP 16; O2SAT 95
[2024-12-07] MEDS: Acetaminophen 500 MG Tablet 1000 MG PO (22:31)
[2024-12-07 22:53] VITALS: BP 130/84; PULSE 80; RESP 17; TEMP 36.8; O2SAT 100
== END 2024-12-07 22:53 | disposition home or self-care (01) ==
PROVIDERS: Emergency Provider Emergency Medicine; PCP Family Medicine; Visit Provider Emergency Medicine
DX: S00.83XA Contusion of other part of head, initial encounter (principal); I48.91 Unspecified atrial fibrillation; W10.9XXA Fall (on) (from) unspecified stairs and steps, initial encounter; Z79.01 Long term (current) use of anticoagulants; Z87.891 Personal history of nicotine dependence; E78.5 Hyperlipidemia, unspecified; I10 Essential (primary) hypertension; S09.90XA Unspecified injury of head, initial encounter; F10.129 Alcohol abuse with intoxication, unspecified; Y93.K9 Activity, other involving animal care; K21.9 Gastro-esophageal reflux disease without esophagitis; Z79.899 Other long term (current) drug therapy; Z90.49 Acquired absence of other specified parts of digestive tract
CPT/HCPCS: 70450; 72125; 80048; 82077; 85025; 93005; 99285; A4216